=== PATIENT | male | born 1965 | race Caucasian/White ===

== ENCOUNTER 2019-03-30 10:12 | Inpatient (IN) | payer OTHER, MEDICAID, SELFPAY ==
[2019-03-30] VITALS (10 sets, daily range): BP systolic 120–164; BP diastolic 65–102; PULSE 84–172; RESP 15–29; TEMP 36.4–36.6; O2SAT 95–99; BMI 42.7
--- NOTE | 2019-03-30 10:17 | DI.RAD.S_ITS ---
PROCEDURE: XR CHEST 1V INDICATIONS: chest pain, palpitations TECHNIQUE: One view of the chest was acquired. COMPARISON: None. FINDINGS: Surgical changes and devices: None. Lungs and pleura: There is an area of increased attenuation identified at the right lung base. No focal consolidation or definite effusion or pneumothorax is appreciated. Mediastinum: Mediastinal contours appear normal. Heart size is borderline enlarged. Bones and chest wall: No suspicious bony lesions. Degenerative changes of the spine and shoulders are not adequately characterized. Overlying soft tissues appear unremarkable. IMPRESSION: 1. Cardiomegaly without overt heart failure. 2. Increased attenuation at the right lung base is nonspecific, but may represent atelectasis versus pneumonia. Dictated by: Slick Beatty M.D. on 03/30/2019 at 10:17 Approved by: Slick Beatty M.D. on 03/30/2019 at 10:20
[2019-03-30 10:42] LABS: Alanine Aminotransferase 29 IU/L (<50); Albumin 4.6 g/dL (3.5-5.0); Albumin Globulin Ratio 1.2 (1.0-2.8); Alkaline Phosphatase 66 U/L (38-126); Aspartate Aminotransferase 27 IU/L (17-59); Bilirubin Total 0.8 mg/dL (0.2-1.3); Blood Urea Nitrogen 16 mg/dL (9-20); Calcium 9.6 mg/dL (8.4-10.2); Carbon Dioxide 24 mmol/L (22-32); Chloride 107 mmol/L (98-107); Creatine Kinase 61 U/L (55-170); Estimated Glomerular Filt Rate > 60.0 mL/min (>60); Globulin 3.7 g/dL (1.7-4.1); Glucose 196 mg/dL (70-100); HEMOLYSIS < 15 (0-50); Lipase 78 U/L (23-300); Potassium 4.4 mmol/L (3.4-5.1); Sodium 143 mmol/L (137-145); Total Protein 8.3 g/dL (6.3-8.2)
--- NOTE | 2019-03-30 10:43 | ED.ARRPALP ---
HPI - Arrhythmia/Palpitations General Chief Complaint: Arrhythmia/Palpitations Stated Complaint: heart issues, heart is racing/shakey/clamy Time Seen by Provider: 03/30/19 10:16 Source: patient Mode of arrival: Ambulatory Limitations: no limitations History of Present Illness HPI narrative: 53-year-old male nonsmoker without significant medical problems presents with a chief complaint of a series of symptoms including palpitations which woke him up from sleep about 1 hour prior to arrival as well as some right-sided chest pain with radiation to his shoulder, shortness of breath and diaphoresis. He states he has had episodes of irregular heartbeat off and on for about the past year but has never had an EKG and has never been evaluated. He does not take anticoagulation nor does he carry a known diagnosis of rapid atrial fibrillation. MD complaint: rapid heart beat, heart racing, palpitations and irregular heart beat Onset (ago): hour(s) Duration: constant Severity: severe Context: occurred during rest Associated symptoms: chest pain, shortness of breath and diaphoresis Related Data Home Medications Medication Instructions Recorded Confirmed No Known Home Medications 03/30/19 03/30/19 Allergies Allergy/AdvReac Type Severity Reaction Status Date / Time No Known Drug Allergies Allergy Verified 03/30/19 10:26 Review of Systems Constitutional Constitutional: Denies chills, Denies fatigue, Denies fever(s), Denies frequent falls, Denies lethargy and Denies weakness Eyes Eyes: Denies change in vision, Denies eye discharge, Denies irritation and Denies loss of vision ENT Ears, Nose, Mouth, and Throat: Denies change in voice, Denies dizziness, Denies neck pain, Denies sore throat and Denies throat swelling Cardiovascular Cardiovascular: Reports chest pain, Reports diaphoresis, Reports irregular heart rhythm, Reports lightheadedness, Reports palpitations, Denies dyspnea, Denies dyspnea on exertion and Denies orthopnea Respiratory Respiratory: Denies cough, Denies dyspnea, Denies dyspnea on exertion and Denies wheezing Gastrointestinal Gastrointestinal: Denies abdominal pain, Denies change in bowel habits, Denies diarrhea, Denies nausea and Denies vomiting Genitourinary Genitourinary: Denies hematuria, Denies flank pain, Denies urinary incontinence and Denies urinary urgency Musculoskeletal Musculoskeletal: Denies back pain, Denies muscle weakness, Denies neck pain, Denies numbness and Denies tingling Integumentary/Breasts Skin/Breast: Denies pruritus, Denies erythema, Denies rash and Denies wounds Neurologic Neurologic: Denies behavioral changes, Denies confusion, Denies dizziness, Denies frequent falls, Denies loss of vision, Denies numbness, Denies tingling and Denies weakness Psychiatric Psychiatric: Denies anxiety, Denies behavioral changes, Denies confusion, Denies depression, Denies homicidal ideation and Denies suicidal ideation Endocrine Endocrine: Denies fatigue, Denies flushing and Reports palpitations Hematologic/Lymphatic Hematologic/Lymphatic: Denies easy bruising Allergic/Immunologic Allergic/Immunologic: Denies urticaria, Denies throat swelling and Denies wheezing Patient History Medical History (Updated 03/30/19 @ 13:14 by Annie Dumont RN) Diabetes (Acute) Social History household members: significant other Smoking Status: Never smoker alcohol intake: never Smoking Status: Unknown if ever smoked alcohol intake frequency: holidays/special occasions only Substance Use Type: does not use Exam Narrative Exam Narrative: GENERAL: [53] year old patient appears stated age. Well-nourished, well-developed patient, in mild distress. HEAD: Atraumatic. Normocephalic. EYES: Pupils equal round and reactive. Extraocular motions intact. No scleral icterus. No injection or drainage. ENT: Nose without bleeding, purulent drainage. Throat without erythema, tonsillar hypertrophy or exudate. Airway patent. NECK: Trachea midline. Non tender CARDIOVASCULAR: Rapid and irregular rhythm without murmurs, gallops, or rubs. RESPIRATORY: Clear to auscultation. Breath sounds equal bilaterally. No wheezes, rales, or rhonchi. GASTROINTESTINAL: Abdomen soft, non-tender, nondistended. EXTREMITIES: No edema or joint tenderness. BACK: Nontender without deformity or crepitance. No flank tenderness. NEURO: AOx3. SKIN: No rash or erythema of visible areas Initial Vital Signs Initial Vital Signs: Vital Signs Temperature 97.7 F 03/30/19 10:20 Pulse Rate 172 H 03/30/19 10:20 Respiratory Rate 29 H 03/30/19 10:20 Blood Pressure 157/102 H 03/30/19 10:20 Pulse Oximetry 99 03/30/19 10:20 Course Orders Ordered: ED Orders 03/30/19 10:17 XR chest 1V Stat EKG-12 Lead Stat 03/30/19 10:20 Complete Blood Count AUTO DIFF Stat Comprehensive Metabolic Panel Stat Lipase Stat Troponin & CK Cardiac Panel Stat Acetaminophen (Tylenol) 650 mg PO Q6HR PRN PRN Reason: Fever/Mild Pain (1-3) Last Admin: 03/30/19 16:37 Dose: 650 mg Documented by: TUAN Apixaban (Eliquis) 5 mg PO BID [facility] Last Admin: 03/30/19 15:03 Dose: 5 mg Documented by: MENDOZA Dextrose ([id number]) 25 gm IV PRN PRN PRN Reason: Hypoglycemia Gabapentin (Neurontin) 300 mg PO TID AISHWARYA DILTIAZEM (Diltiazem 125 Mg/125 [id number]) 125 mg in 125 mls @ 5 mls/hr IV TITRATE [facility]; Protocol Last Titration: 03/30/19 13:40 Dose: 15 mg/hr, 15 mls/hr Documented by: Titration: 03/30/19 13:00 Dose: 10 mg/hr, 10 mls/hr Documented by: Titration: 03/30/19 12:56 Dose: 5 mg/hr, 5 mls/hr Documented by: Admin: 03/30/19 12:00 Dose: 5 mg/hr, 5 mls/hr Documented by: CONNOR Insulin Aspart (Novolog Flexpen) 0 unit SUBCUT [facility]; Protocol Last Admin: 03/30/19 17:07 Dose: 2 unit Documented by: TUAN Cosigned by: ANDREA Naloxone HCl (Narcan) 0.2 mg IV Q2MIN PRN PRN Reason: Opiate Reversal Discontinued Medications Aspirin (Aspirin Chew) 324 mg PO NOW ONE Stop: 03/30/19 11:17 Last Admin: 03/30/19 11:59 Dose: 324 mg Documented by: CONNOR Diltiazem HCl (Cardizem) 10 mg IV NOW ONE Stop: 03/30/19 10:46 Last Admin: 03/30/19 10:54 Dose: 10 mg Documented by: DAVOTERoberta Sodium Chloride (Normal Saline 0.9%) 1,000 mls @ 150 mls/hr IV CONT [facility] Last Infusion: 03/30/19 14:25 Dose: 0 mls/hr Documented by: Infusion: 03/30/19 12:55 Dose: 150 mls/hr Documented by: Admin: 03/30/19 10:44 Dose: 150 mls/hr Documented by: JOSE Consultations Consultation #1: talk with Cardio at [facility]. Patient is not an appropriate candidate for electrocardioversion because although his symptoms started just a few hours ago the patient is in no extremis, there are no ischemic changes on the EKG and patient has had multiple episodes of palpitations and arrhythmia over the past few weeks raising the risk of the possibility development of intracardiac clot. Consultation #2: Hospitalist happy to accept this patient on his service Vital Signs Vital signs: Vital Signs - 8 hr 03/30/19 10:54 03/30/19 11:16 Pulse Rate 167 H 109 H Respiratory Rate 15 Blood Pressure 164/94 H Blood Pressure [Left Arm] 126/81 Pulse Oximetry 97 MDM - Arrhythmia/Palpitations Lab Data Result diagrams: 03/30/19 10:20 03/30/19 10:20 Labs: Lab Results 03/30/19 03/30/19 Range/Units 10:20 10:20 WBC 8.3 (4.5-11.0) X10^3/uL RBC 5.63 (4.5-5.9) X10^6/uL Hgb 16.5 (13.5-17.5) g/dL Hct 49.9 (41-53) % MCV 88.6 (80-100) fL MCH 29.3 (26-34) PG MCHC 33.1 (30-36) % RDW 15.1 H (11.6-14.8) % Plt Count 196 (150-400) X10^3/uL Neut % (Auto) 67.9 (50-75) % Lymph % (Auto) 21.0 L (25-40) % [place] % (Auto) 9.4 (3-14) % Eos % (Auto) 1.1 L (2-4) % Baso % (Auto) 0.6 (0-2) % Neut # (Auto) 5700 (0165-4758) /uL Lymph # (Auto) 1800 (6782-3896) /uL [place] # (Auto) 800 (0-900) /uL Eos # (Auto) 100 (0-450) /uL Baso # (Auto) 0 (0-100) /uL Sodium 143 (137-145) mmol/L Potassium 4.4 (3.4-5.1) mmol/L Chloride 107 (98-107) mmol/L Carbon Dioxide 24 (22-32) mmol/L BUN 16 (9-20) mg/dL Creatinine 1.00 (0.66-1.25) mg/dL Estimated GFR > 60.0 (>60) mL/min BUN/Creatinine Ratio 16.0 (6-22) Glucose 196 H (70-100) mg/dL Calcium 9.6 (8.4-10.2) mg/dL Total Bilirubin 0.8 (0.2-1.3) mg/dL AST 27 (17-59) IU/L ALT 29 (<50) IU/L Alkaline Phosphatase 66 (38-126) U/L Total Creatine Kinase 61 (55-170) U/L CK-MB (CK-2) TNP CK-MB (CK-2) Rel Index TNP Troponin I < 0.012 (0.01-0.034) ng/mL Total Protein 8.3 H (6.3-8.2) g/dL Albumin 4.6 (3.5-5.0) g/dL Globulin 3.7 (1.7-4.1) g/dL Albumin/Globulin Ratio 1.2 (1.0-2.8) Lipase 78 (23-300) U/L ECG Data Interpretation: Rapid atrial fibrillation at 173 without any signs of ischemia. Discharge Plan Departure Patient Disposition: Admitted As Inpatient Clinical Impression: Rapid atrial fibrillation Discharge Date/Time: 03/30/19 12:57 Admit Date/Time: 03/30/19 12:06 Admit Provider: Alexis Ceja
[2019-03-30] MEDS: SODIUM CHLORIDE 0.9% 1,000 ML 150 ML IV (10:44)
[2019-03-30 10:47] LABS: Add Manual Diff / Slide Review NO; Basophils Absolute Auto 0 /uL (0-100); Basophils Percent Auto 0.6 % (0-2); Eosinophils Absolute Auto 100 /uL (0-450); Eosinophils Percent Auto 1.1 % (2-4); Hematocrit 49.9 % (41-53); Hemoglobin 16.5 g/dL (13.5-17.5); Lymphocytes Absolute Auto 1800 /uL (1100-4500); Mean Corpuscular HGB Conc 33.1 % (30-36); Mean Corpuscular Hemoglobin 29.3 PG (26-34); Mean Corpuscular Volume 88.6 fL (80-100); Monocytes Absolute Auto 800 /uL (0-900); Monocytes Percent Auto 9.4 % (3-14); Neutrophils Absolute Auto 5700 /uL (1500-7000); Neutrophils Percent Auto 67.9 % (50-75); Platelet Count 196 X10^3/uL (150-400); Red Blood Cell Count 5.63 X10^6/uL (4.5-5.9); Red Cell Distribution Width 15.1 % (11.6-14.8); White Blood Cell Count 8.3 X10^3/uL (4.5-11.0)
[2019-03-30 10:52] LABS: Troponin I < 0.012 ng/mL (0.01-0.034)
[2019-03-30] MEDS: dilTIAZem 5 MG/ML SDV 10 MG IV (10:54)
[2019-03-30] MEDS: ASPIRIN 81 MG CHEW TAB 324 MG PO (11:59)
[2019-03-30] MEDS: DILTIAZEM 125 MG/125 ML PIGGYBACK IV (12:00)
--- NOTE | 2019-03-30 13:16 | PC.ADMIT ---
Admit Note Patient to room 228 at 1300 from ER. Walked self from stretcher to bed without issue. Alert and oriented x3. HR in the 130s, afib. Diltiazem gtt increased to 10 mg/hr. SpO2 98% on RA. Reports chest pain / and that this has improved from arrival to ER. Denies SOB. Declines to lock up any valuables. All clothing at bedside, glasses at bedside. Oriented to room and to bed/tv/call light controls. Call light within reach. [phone] Admission Note: The patient,Raudel Martinez,53 y/o, was given written information regarding hospital policies, unit procedures and contact persons. Patient's smoking status: Unknown if ever smoked. Vital Signs - 8 hr 03/30/19 10:20 03/30/19 10:54 03/30/19 11:16 Temperature 97.7 F Pulse Rate 167 H 109 H Pulse Rate [Radial] 172 H Respiratory Rate 29 H 15 Blood Pressure 164/94 H Blood Pressure [Left Arm] 157/102 H 126/81 Pulse Oximetry 99 97 03/30/19 12:12 Temperature Pulse Rate 131 H Pulse Rate [Radial] Respiratory Rate 16 Blood Pressure Blood Pressure [Left Arm] 146/72 H Pulse Oximetry 97
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
--- NOTE | 2019-03-30 14:25 | DI.ECHO.S_ITS ---
[facility] +---------+ : : [address] : : : : [id number] : : : : Phone: [phone]+ Echocardiogram Report + + :Name: BARRERA WEEKS Study Date: 03/31/2019 Height: 74 in : :[facility] Weight: 341 lb : : Gender: Male BSA: 2.7 m2 : :: 1965 Age: 53 yrs BP: 114/83 mmHg: :Reason For Study: AFIB RVR : : Performed By: Marlon Dos Santos : :Referring: ESTHER DAMICO : + + Interpretation Summary Afib with rapid ventricular response. Heart rate is 88-109 bpm. Normal LV size and wall thickness. Severe global hypokinesis. EF is 25-30%. Mild biatrial enlargement. Mildly dilated RV with mildly to moderately reduced RV function. There are no significant valvular abnormalities. Estimated PA systolic pressure is 40 mm Hg assuming RA pressure of 15 mm Hg. No prior study available for comparison. Procedure: A two-dimensional transthoracic echocardiogram with color flow and Doppler was performed. The study quality was technically difficult. There is no prior echocardiogram noted for this patient. A contrast injection of Definity was performed to improve assessment of LV function. The patient was in atrial fibrillation with controlled ventricular rate during the exam. The patient had a heart rate of 88-109 beats per minute. Left Ventricle: There is normal left ventricular wall thickness. Left ventricular size is at the upper limits of normal. There is no thrombus. The ejection fraction is estimated to be 25-30%. There is severe global hypokinesis of the left ventricle. Right Ventricle: The right ventricle is mildly dilated. Right ventricular systolic function is mild to moderately reduced. Atria: Both atria are mildly dilated. The interatrial septum is intact with no evidence for an atrial septal defect. Mitral Valve: The mitral valve is normal in structure and function. There is mild mitral regurgitation. Aortic Valve: The aortic valve is trileaflet. The aortic valve opens well. No aortic regurgitation is present. Tricuspid Valve: The tricuspid valve is normal in structure and function. There is trace tricuspid regurgitation. The right ventricular systolic pressure is estimated to be at least 40 mmHg based on an estimated right atrial pressure of 15 mm Hg. Pulmonic Valve: The pulmonic valve is normal in structure and function. There is trace pulmonic regurgitation. Great Vessels: The aortic root is normal size. The dimensions of the ascending aorta are normal. The pulmonary artery is normal size. The IVC is dilated (diameter is greater than 2.1 cm) and it collapses less than 50% with a sniff. This suggests a high right atrial pressure of 15 mm Hg. Pericardium/ Pleura There is no pericardial effusion. There is no pleural effusion. MMode/2D Measurements & Calculations LVIDd: 5.7 cm LVOT diam: 2.5 cm LVIDs: 4.9 cm Ao root diam: 3.1 cm FS: 14.6 % Aortic Jxn: 2.6 cm EPSS: 0.93 cm asc Aorta Diam: 3.0 cm IVSd: 0.90 cm LVPWd: 0.88 cm LV montemayor. diameter/BSA (cm/m^2): 2.1 LV sys. diameter/BSA (cm/m^2): 1.8 LA dimension: 5.0 cm RA long axis: 5.1 cm LA A2 area: 25.0 cm2 RA area: 24.3 cm2 LA A4 area: 27.8 cm2 RA vol: 98.1 ml LA length (vol): 6.0 cm RA : 36.0 ml/m2 LA vol: 97.8 ml IVC diam: 3.2 cm LA vol index: 35.9 ml/m2 RVD1 (basal): 4.6 cm RVD2 (mid): 4.7 cm Doppler Measurements & Calculations Ao V2 max: 114.4 cm/sec LVOT Max Yoandy: 69.8 cm/sec Ao V2 mean: 90.3 cm/sec LV V1 max P.0 mmHg Ao max P.3 mmHg LV V1 VTI: 12.4 cm Ao mean P.5 mmHg DIAMOND(I,D): 3.2 cm2 Ao V2 VTI: 18.3 cm DIAMOND(V,D): 2.9 cm2 sev ratio: 0.68 DIAMOND indexed to BSA (cm^2/m^2): 1.2 MV E max yoandy: 111.1 cm/sec TR max yoandy: 247.5 cm/sec MV A max yoandy: 1.3 cm/sec TR max P.6 mmHg MV E/A: 84.3 PA V2 max: 64.9 cm/sec Med Peak E' Yoandy: 4.9 cm/sec PA V2 mean: 53.8 cm/sec E/E' med: 22.8 PA mean P.2 mmHg Lat Peak E' Yoandy: 9.9 cm/sec PA pr(Accel): 54.1 mmHg E/E' lat: 11.3 PA Accel Time: 0.05 sec E/e' average: 17.0 MV dec time: 0.10 sec SV(LVOT): 59.0 ml Electronically signed by: Felecia Munoz M.D. on [facility] Physician:03/31/2019 06:57 PM
[2019-03-30] MEDS: APIXABAN 5 MG TABLET PO ×2 (15:03→21:00)
[2019-03-30] MEDS: ACETAMINOPHEN 325 MG TABLET 650 MG PO ×2 (16:37→22:14)
[2019-03-30] MEDS: INSULIN ASPART 100 UNIT/ML INSULN PEN SUBCUT (17:07)
[2019-03-30 19:02] LABS: Troponin I < 0.012 ng/mL (0.01-0.034)
[2019-03-30] MEDS: GABAPENTIN 300 MG CAPSULE PO (21:00)
[2019-03-30] MEDS: DILTIAZEM 125 MG/125 ML PIGGYBACK 15 MG IV (21:02)
--- NOTE | 2019-03-30 21:31 | PC.NURSE ---
2100 - Pt resting in bed. HR in the 80's. Cardizem gtt at 15mg/hr. Pt continues to report headache unrelieved by APAP. Hospitalist aware. Awaiting orders. Educated to medications, Gabapentin, Elquis and Cardizem. Pt denies further need. Call light in reach.
[2019-03-30] MEDS: METOPROLOL ER 25 MG TABLET PO (22:13)
[2019-03-31] VITALS (11 sets, daily range): BP systolic 102–138; BP diastolic 62–83; PULSE 71–112; RESP 16–25; TEMP 35.8–37.1; O2SAT 94–97
--- NOTE | 2019-03-31 01:02 | PC.NURSE ---
Addendum entered by Rhonda Benavidez R.N. 03/31/19 06:36: HR 70-90's. Diltazem GTT off at 0630 after discussion with SOHAN Lau. No acute overnight events. Original Note: 0000 Diltiazem GTT titrated down to 10 mg/hour per protocol. Metoprolol PO given on evening shift. BP stable. HR noted to be consistently in the 70's-80's. Remains in Afib.
[2019-03-31 05:31] LABS: Add Manual Diff / Slide Review NO; Basophils Absolute Auto 0 /uL (0-100); Basophils Percent Auto 0.4 % (0-2); Eosinophils Absolute Auto 200 /uL (0-450); Eosinophils Percent Auto 2.1 % (2-4); Hematocrit 43.5 % (41-53); Hemoglobin 14.4 g/dL (13.5-17.5); Lymphocytes Absolute Auto 2300 /uL (1100-4500); Lymphocytes Percent Auto 26.4 % (25-40); Mean Corpuscular HGB Conc 33.1 % (30-36); Mean Corpuscular Hemoglobin 29.3 PG (26-34); Mean Corpuscular Volume 88.5 fL (80-100); Monocytes Absolute Auto 900 /uL (0-900); Monocytes Percent Auto 10.4 % (3-14); Neutrophils Absolute Auto 5300 /uL (1500-7000); Neutrophils Percent Auto 60.7 % (50-75); Platelet Count 172 X10^3/uL (150-400); Red Blood Cell Count 4.91 X10^6/uL (4.5-5.9); Red Cell Distribution Width 15.4 % (11.6-14.8); White Blood Cell Count 8.7 X10^3/uL (4.5-11.0)
[2019-03-31 05:37] LABS: Blood Urea Nitrogen 16 mg/dL (9-20); Calcium 9.2 mg/dL (8.4-10.2); Carbon Dioxide 25 mmol/L (22-32); Chloride 107 mmol/L (98-107); Cholesterol 146 mg/dL (140-199); Estimated Glomerular Filt Rate > 60.0 mL/min (>60); Glucose 161 mg/dL (70-100); HDL Cholesterol 22 mg/dL (40-60); HEMOLYSIS < 15 (0-50); LDL Cholesterol Calculated 95 mg/dL (<100); Potassium 4.2 mmol/L (3.4-5.1); Sodium 141 mmol/L (137-145); Triglycerides 147 mg/dL (35-150)
[2019-03-31 05:42] LABS: Hemoglobin A1C% w Est Avg Glu 8.1 % (4.0-6.0)
[2019-03-31] MEDS: INSULIN ASPART 100 UNIT/ML INSULN PEN SUBCUT ×2 (10:03→12:52)
[2019-03-31] MEDS: APIXABAN 5 MG TABLET PO ×2 (10:04→20:40)
[2019-03-31] MEDS: GABAPENTIN 300 MG CAPSULE PO ×3 (10:04→20:40)
[2019-03-31] MEDS: METOPROLOL ER 25 MG TABLET PO (10:04)
--- NOTE | 2019-03-31 11:01 | PC.NURSE ---
Addendum entered by Louisa Islas R.N. 03/31/19 13:11: echo completed Original Note: dilt gtt off since 0600 pt remains afib cvr- po metoprolol and eliquis given as well as gabapentin- covered bld glucose with ssc- echo complete - pt reports queezy no nausea and vomiting noted- no rx ordered
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
[2019-03-31] MEDS: ONDANSETRON 4 MG/2 ML INJ IV (16:46)
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
[2019-03-31] MEDS: METOPROLOL ER 25 MG TABLET 50 MG PO (20:40)
[2019-03-31] MEDS: FUROSEMIDE 20 MG/2 ML VIAL IV (20:40)
[2019-03-31] MEDS: PANTOPRAZOLE 20 MG TABLET PO (20:47)
[2019-03-31] MEDS: ATORVASTATIN 20 MG TABLET PO (21:25)
--- NOTE | 2019-03-31 22:39 | PC.NURSE ---
Patient is A/Ox4, ambulatory in the room to bathroom, room air, tele shows Afib ranging from low 90's to 110's. No complaints of pain. Complained of feeling queasy, relieved by Zofran. Refused dinner but ate soup and turkey sandwich later on. No more complaints of nausea. Patient in bed, call light within reach.
[2019-04-01 00:37] VITALS: BP 135/77; PULSE 93; RESP 18; TEMP 37.1; O2SAT 97
[2019-04-01 05:17] VITALS: BP 121/76; PULSE 92; RESP 12; TEMP 36.3; O2SAT 93
[2019-04-01 05:24] LABS: Add Manual Diff / Slide Review NO; Basophils Absolute Auto 100 /uL (0-100); Basophils Percent Auto 0.6 % (0-2); Eosinophils Absolute Auto 200 /uL (0-450); Eosinophils Percent Auto 2.5 % (2-4); Hematocrit 43.9 % (41-53); Hemoglobin 14.6 g/dL (13.5-17.5); Lymphocytes Absolute Auto 2600 /uL (1100-4500); Lymphocytes Percent Auto 26.5 % (25-40); Mean Corpuscular HGB Conc 33.3 % (30-36); Mean Corpuscular Hemoglobin 29.4 PG (26-34); Mean Corpuscular Volume 88.4 fL (80-100); Monocytes Absolute Auto 900 /uL (0-900); Monocytes Percent Auto 9.5 % (3-14); Neutrophils Absolute Auto 6000 /uL (1500-7000); Neutrophils Percent Auto 60.9 % (50-75); Platelet Count 166 X10^3/uL (150-400); Red Blood Cell Count 4.97 X10^6/uL (4.5-5.9); Red Cell Distribution Width 14.6 % (11.6-14.8); White Blood Cell Count 9.8 X10^3/uL (4.5-11.0)
[2019-04-01 05:39] LABS: BUN Creatinine Ratio 14.5 (6-22); Blood Urea Nitrogen 16 mg/dL (9-20); Calcium 9.2 mg/dL (8.4-10.2); Carbon Dioxide 29 mmol/L (22-32); Chloride 105 mmol/L (98-107); Estimated Glomerular Filt Rate > 60.0 mL/min (>60); Glucose 149 mg/dL (70-100); HEMOLYSIS < 15 (0-50); Potassium 4.1 mmol/L (3.4-5.1); Sodium 141 mmol/L (137-145)
[2019-04-01 08:00] VITALS: BP 135/84; PULSE 105; RESP 14; TEMP 36.1; O2SAT 97
[2019-04-01] MEDS: PANTOPRAZOLE 20 MG TABLET PO (09:18)
[2019-04-01] MEDS: INSULIN ASPART 100 UNIT/ML INSULN PEN SUBCUT ×2 (09:19→12:19)
[2019-04-01] MEDS: METOPROLOL ER 25 MG TABLET 100 MG PO (09:19)
[2019-04-01] MEDS: GABAPENTIN 300 MG CAPSULE PO (09:19)
[2019-04-01] MEDS: APIXABAN 5 MG TABLET PO (09:19)
--- NOTE | 2019-04-01 10:54 | CM.DANOTE ---
Discharge Planning/Care Management DCP: assessment: case received and discussed in Team Rounds. Pt is a 53 year old male who admitted afternoon of 03/30 to care of hospitalist team. Payer: [facility]/Medicaid PCP: [facility] in [place]. Dr. Ceja confirms this morning that cardiology has been consulted and pt will transfer to [facility] for higher level of cardiac care including a cardiac cath. CM Discharge Assessment Start: 04/01/19 10:51 Freq: Status: Active Protocol: Document 04/01/19 10:51 ITV (Rec: 04/01/19 10:53 ITV [id number]) Discharge Planning Assessment Advance Directives? No Advance Directives on File No History Provided By Medical Record Comment has been staying at the home of friend Layne Jackson. Independent with ADL's Yes Is patient alert and oriented? Yes Discharge Plan Transfer to Higher Level of Care Review Status In Process
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
--- NOTE | 2019-04-01 12:02 | PC.NURSE ---
Addendum entered by Jeffrey Sarmiento R.N. 04/01/19 13:39: [facility] here to [facility] picker pt for transport to [facility]. Pt is AO x3 and in no acute distress. Pt did c/o mild dizziness that just started after lunch. His VSS. Bedside monitor shows Afib with rates in the 90s. BP stable. Report given to ALS RN. Pt able to transfer himself from bed to stretcher independently. Pt declines that I notify anyone (ie, family/friends) of his transfer. Pt left rm with ambulance staff at [id number]. Original Note: Report called to TAMIKO Cordova at [facility]. Pt is going to room 3004. Updated pt and coordinator.
[2019-04-01] MEDS: SILVER SULFADIAZINE 1% CREAM 25 GM 1 APPLIC TOP (12:22)
[2019-04-01 12:32] VITALS: BP 123/60; PULSE 100; RESP 19; TEMP 36.3; O2SAT 96
== END 2019-04-01 13:38 | disposition short-term general hospital (02) | DRG 201 ==
LOC: ED 12:04 → ICU 12:55
PROVIDERS: Admitting Provider Internal Medicine; Emergency Provider Emergency Medicine; Referring Provider Emergency Medicine; Visit Provider Internal Medicine
DX: I48.91 Unspecified atrial fibrillation (principal); I50.20 Unspecified systolic (congestive) heart failure; E11.42 Type 2 diabetes mellitus with diabetic polyneuropathy; Z68.41 Body mass index [BMI] 40.0-44.9, adult; Z79.84 Long term (current) use of oral hypoglycemic drugs; I10 Essential (primary) hypertension; G47.33 Obstructive sleep apnea (adult) (pediatric); T24.001D Burn of unspecified degree of unspecified site of right lower limb, except ankle and foot, subsequent encounter; E66.9 Obesity, unspecified
CPT/HCPCS: 36415; 71045; 80048; 80053; 80061; 82550; 82962; 83036; 83690; 83735; 84443; 84484; 85025; 87797; 93005; 93306; 96361; 96365; 96376; 99284; G0378; J1940; J2405; Q9957

== ENCOUNTER 2019-04-21 11:06 | Emergency (ER) | payer OTHER, MEDICAID, SELFPAY ==
[2019-03-30 13:25] VITALS: BMI 42.7
[2019-04-21 11:06] VITALS: BP 140/87; PULSE 121; RESP 30; TEMP 36.3; O2SAT 98
--- NOTE | 2019-04-21 11:12 | DI.RAD.S_ITS ---
PROCEDURE: XR CHEST 1V INDICATIONS: chest pain TECHNIQUE: One view of the chest was acquired. COMPARISON: [facility], CR, XR CHEST 1V, 03/30/2019, 10:38. FINDINGS: Surgical changes and devices: None. Lungs and pleura: Lungs are clear. No pleural effusions or pneumothorax. Mediastinum: Mediastinal contours appear normal. Heart size is enlarged. Bones and chest wall: No suspicious bony lesions. Overlying soft tissues appear unremarkable. IMPRESSION: No acute cardiopulmonary pathology. Dictated by: Roberto Contreras M.D. on 04/21/2019 at 11:36 Approved by: Roberto Contreras M.D. on 04/21/2019 at 11:40
[2019-04-21 12:08] LABS: INR 1.3 (0.9-1.3); Prothrombin Time 15.5 SECONDS (10.1-12.7)
[2019-04-21 12:10] LABS: PTT Partial Thromboplastin Tim 37 SECONDS (26.4-36.2)
[2019-04-21 12:12] LABS: Alanine Aminotransferase 28 IU/L (<50); Albumin 4.1 g/dL (3.5-5.0); Albumin Globulin Ratio 1.2 (1.0-2.8); Alkaline Phosphatase 45 U/L (38-126); Aspartate Aminotransferase 30 IU/L (17-59); BUN Creatinine Ratio 14.9 (6-22); Bilirubin Total 0.7 mg/dL (0.2-1.3); Blood Urea Nitrogen 13 mg/dL (9-20); Calcium 8.8 mg/dL (8.4-10.2); Carbon Dioxide 26 mmol/L (22-32); Chloride 108 mmol/L (98-107); Creatine Kinase 79 U/L (55-170); Estimated Glomerular Filt Rate > 60.0 mL/min (>60); Globulin 3.4 g/dL (1.7-4.1); Glucose 174 mg/dL (70-100); Lipase 238 U/L (23-300); Potassium 4.4 mmol/L (3.4-5.1); Sodium 140 mmol/L (137-145); Total Protein 7.5 g/dL (6.3-8.2)
[2019-04-21 12:13] LABS: HEMOLYSIS 53 (0-50); Magnesium 1.9 mg/dL (1.6-2.3)
[2019-04-21 12:21] LABS: NT-proBNP (BNP-Adult 18+) 3570 pg/mL (<125)
--- NOTE | 2019-04-21 12:21 | ED.ARRPALP ---
HPI - Arrhythmia/Palpitations <SOHAN Philip - Last Filed: 04/21/19 14:35> General Chief Complaint: Arrhythmia/Palpitations Stated Complaint: heart problems Time Seen by Provider: 04/21/19 12:03 Source: patient Mode of arrival: Ambulatory Limitations: no limitations History of Present Illness HPI narrative: This is a 53-year-old male, nonsmoker, who presents to ED with significant other with chief complain of his heart beating hard and funny intermittently for last 1 week. Patient was recently diagnosed with AFib in 03/30/19 and had started on Xarelto 20 mg q.p.m. and metoprolol or XL 100 mg b.i.d.. Echocardiogram was done after the admission and showed heart failure with reduced ejection fraction about 25% and discharged to home with Lasix 20 mg daily dose. Patient was to undergo left heart catheterization at [facility] but the patient reports this has canceled. Patient has of follow-up appointment with Dr. Mcnamara in 05/09/2019 and he also is currently taking lisinopril 5 mg daily. Patient has history of hypertension and MESFIN and had s/p uvula surgery but significant other states he still snores. Significant other states patient had coughing tickles last night at 3:00 a.m. and he seems like his symptoms chest palpitation/irregularity started with this. Spouse notice he has been having exertional short of breath for about a week. Patient denies chest pain, cold sweats, nausea or vomiting at this time. Patient denies orthopnea, recent edema to lower extremities. While patient is resting in bed at this time, he does not have any symptoms and current heart rate is decreased to 90s in AFib. Related Data Home Medications Medication Instructions Recorded Confirmed acetaminophen 650 mg PO Q4H PRN 04/21/19 04/21/19 atorvastatin 20 mg PO QPM 04/21/19 04/21/19 furosemide 20 mg PO QAM 04/21/19 04/21/19 lisinopril 5 mg PO QAM 04/21/19 04/21/19 metoprolol succinate 100 mg PO BID 04/21/19 04/21/19 rivaroxaban [Xarelto] 20 mg PO QPM 04/21/19 04/21/19 silver sulfadiazine [SSD] 1 applic TOPICAL DAILY 04/21/19 04/21/19 Previous Rx's Medication Instructions Recorded furosemide 40 mg PO BID #30 tab 04/21/19 Allergies Allergy/AdvReac Type Severity Reaction Status Date / Time No Known Drug Allergies Allergy Verified 03/30/19 10:26 Review of Systems <SOHAN Philip - Last Filed: 04/21/19 14:35> Review of Systems Narrative: General: Denies fever, chills, fatigue, malaise, sweats. HEENT: Denies sinus pain, ear pain, sore throat, difficulty swallowing, dizziness. Respiratory: See HPI Cardiovascular: Denies chest pain, palpitations, orthopnea, edema. Gastrointestinal: Denies nausea, vomiting, abdominal pain, diarrhea, constipation, melena. : Denies dysuria, frequency, incontinence, hematuria, urinary retention. Musculoskeletal: Denies weakness, joint pain or bony pain. Skin: Denies rash, skin lesions, or other. Neurologic: Denies weakness, headache, numbness, change in speech, confusion, seizures, incoordination. Psychiatric: No concerning psychosocial issues. 12-point review of systems is negative except for those stated above. Patient History <SOHAN Philip - Last Filed: 04/21/19 14:35> Medical History (Updated 04/21/19 @ 14:19 by SOHAN Philip) Diabetes (Acute) Hypertension (Acute) MESFIN (obstructive sleep apnea) (Acute) Surgical History (Updated 04/21/19 @ 12:29 by SOHAN Philip) H/O uvulectomy (Acute) Social History household members: significant other Smoking Status: Never smoker alcohol intake: never Smoking Status: Never smoker alcohol intake frequency: holidays/special occasions only Substance Use Type: does not use Exam <SOHAN Philip - Last Filed: 04/21/19 14:35> Narrative Exam Narrative: GEN: Alert, oriented x 3, obese, well appearing and nourished, and in no acute distress. Head: Normal cephalic, atraumatic. No scalp or temporal tenderness, palpable mass or rash. EYES: Pupils are equal, round, and reactive to light and accommodation. Extraocular muscles are intact bilaterally. There is no subconjunctival hemorrhage, exudate and sclera non-icteric. ENT: Bilateral auditory canals and tympanic membranes clear. Hearing grossly intact. Nose without bleeding, purulent discharge or deviation. Facial sinuses nontender to palpate. Mucous membrane moist, no mucosal lesion. Throat without erythema, tonsillar hypertrophy or exudate. s/p Uvulectomy, Airway patent. Neck: Trachea in midline. No JVD, non-tender without lymphadenopathy. No masses or thyroid megaly. Supple, non-tender and no meningeal signs. CARDIAC: Irregular rate and rhythm without murmurs, gallops, or rubs. No chest wall tenderness. Mild lower leg edema +1 without cyanosis or pallor. Capillary refill is less than 2 seconds. RESPIRATORY: Lungs are clear to auscultate bilaterally. No cough, wheezes, rales, or rhonchi. No stridor, respiratory distress, increase work of breathing, or accessary muscle used. ABD: Abdomen soft, nontender and non-distended and obese. No guarding or rebound tenderness to palpate. Bowel sounds are normal in all 4 quadrants. There is no palpable masses or organomegaly. EXT: Full painless ROM of all extremities with no loss of sensation, strength, effusion or edema. SKIN: Warm, dry, normal color for patient. No erythema, lesions or rash over visible areas. BACK: Nontender without deformity or crepitance. No flank tenderness. NEUROLOGICAL: Alert and oriented to place, time and person. Sensation and motor function intact bilaterally. No facial droops, dysphasia. PSYCHIATRIC: Good judgement and reason, without hallucinations, abnormal affect or abnormal behaviors during the examination. Patient is not suicidal. Initial Vital Signs Initial Vital Signs: Vital Signs Temperature 97.4 F L 04/21/19 11:06 Pulse Rate 121 H 04/21/19 11:06 Respiratory Rate 30 H 04/21/19 11:06 Blood Pressure 140/87 04/21/19 11:06 Pulse Oximetry 98 04/21/19 11:06 <Mau Potter MD - Last Filed: 04/23/19 08:30> Initial Vital Signs Initial Vital Signs: Vital Signs Temperature 97.4 F L 04/21/19 11:06 Pulse Rate 121 H 04/21/19 11:06 Respiratory Rate 30 H 04/21/19 11:06 Blood Pressure 140/87 04/21/19 11:06 Pulse Oximetry 98 04/21/19 11:06 Scores <SOHAN Philip - Last Filed: 04/21/19 14:35> HEART Score Heart Score history: Slightly Suspicious Heart Score EKG: Non-Specific repolarization disturbance Heart Score Age: 45-64 years old Heart Score risk factors: > 3 risk factors or hx of atherosclerotic disease Heart Score troponin: < or = to normal limit Heart Score Total: 4 Course <SOHAN Philip - Last Filed: 04/21/19 14:35> Course Course Narrative: consuted for elevated pro BNP of 3570 with hx of HF with EF of 25% Decision to Admit time: 13:06 Orders Ordered: Discontinued Medications Furosemide (Lasix) 40 mg IV NOW ONE Stop: 04/21/19 13:39 Last Admin: 04/21/19 14:48 Dose: 40 mg Documented by: TOMY Vital Signs Vital signs: Vital Signs - 8 hr 04/21/19 11:06 04/21/19 12:23 04/21/19 12:25 Temperature 97.4 F L 97.5 F L Pulse Rate 121 H 96 H 83 Respiratory Rate 30 H 19 12 Blood Pressure 140/87 Blood Pressure [Left Arm] 131/76 Blood Pressure [Right Arm] 131/76 Pulse Oximetry 98 96 96 <Mau Potter MD - Last Filed: 04/23/19 08:30> Orders Ordered: Discontinued Medications Furosemide (Lasix) 40 mg IV NOW ONE Stop: 04/21/19 13:39 Last Admin: 04/21/19 14:48 Dose: 40 mg Documented by: TOMY Vital Signs Vital signs: Vital Signs - 8 hr 04/21/19 11:06 04/21/19 12:23 04/21/19 12:25 Temperature 97.4 F L 97.5 F L Pulse Rate 121 H 96 H 83 Respiratory Rate 30 H 19 12 Blood Pressure 140/87 Blood Pressure [Left Arm] 131/76 Blood Pressure [Right Arm] 131/76 Pulse Oximetry 98 96 96 MDM - Arrhythmia/Palpitations <SOHAN Philip - Last Filed: 04/21/19 14:35> Differential Diagnosis Differential diagnosis: Likely artial fibrillation and other (HF exacerbation, NSTEMI) Medical Records Attestation: I reviewed the patient's medical records. Lab Data Attestation: I reviewed the patient's lab results. Result diagrams: 04/21/19 11:46 04/21/19 11:46 Labs: Lab Results 04/21/19 04/21/19 04/21/19 Range/Units 11:46 11:46 11:46 WBC 7.9 (4.5-11.0) X10^3/uL RBC 4.99 (4.5-5.9) X10^6/uL Hgb 14.8 (13.5-17.5) g/dL Hct 44.3 (41-53) % MCV 88.7 (80-100) fL MCH 29.7 (26-34) PG MCHC 33.5 (30-36) % RDW 15.0 H (11.6-14.8) % Plt Count 141 L (150-400) X10^3/uL Neut % (Auto) 70.5 (50-75) % Lymph % (Auto) 19.4 L (25-40) % [place] % (Auto) 7.3 (3-14) % Eos % (Auto) 2.1 (2-4) % Baso % (Auto) 0.7 (0-2) % Neut # (Auto) 5600 (5048-1562) /uL Lymph # (Auto) 1500 (9110-1552) /uL [place] # (Auto) 600 (0-900) /uL Eos # (Auto) 200 (0-450) /uL Baso # (Auto) 100 (0-100) /uL PT 15.5 H (10.1-12.7) SECONDS INR 1.3 (0.9-1.3) APTT 37 H (26.4-36.2) SECONDS Sodium 140 (137-145) mmol/L Potassium 4.4 (3.4-5.1) mmol/L Chloride 108 H (98-107) mmol/L Carbon Dioxide 26 (22-32) mmol/L BUN 13 (9-20) mg/dL Creatinine 0.87 (0.66-1.25) mg/dL Estimated GFR > 60.0 (>60) mL/min BUN/Creatinine Ratio 14.9 (6-22) Glucose 174 H (70-100) mg/dL Calcium 8.8 (8.4-10.2) mg/dL Magnesium (1.6-2.3) mg/dL Total Bilirubin 0.7 (0.2-1.3) mg/dL AST 30 (17-59) IU/L ALT 28 (<50) IU/L Alkaline Phosphatase 45 (38-126) U/L Total Creatine Kinase 79 (55-170) U/L CK-MB (CK-2) TNP CK-MB (CK-2) Rel Index TNP Troponin I < 0.012 (0.01-0.034) ng/mL NT-Pro-B Natriuret Pep (<125) pg/mL Total Protein 7.5 (6.3-8.2) g/dL Albumin 4.1 (3.5-5.0) g/dL Globulin 3.4 (1.7-4.1) g/dL Albumin/Globulin Ratio 1.2 (1.0-2.8) Lipase 238 (23-300) U/L 04/21/19 Range/Units 11:46 WBC (4.5-11.0) X10^3/uL RBC (4.5-5.9) X10^6/uL Hgb (13.5-17.5) g/dL Hct (41-53) % MCV (80-100) fL MCH (26-34) PG MCHC (30-36) % RDW (11.6-14.8) % Plt Count (150-400) X10^3/uL Neut % (Auto) (50-75) % Lymph % (Auto) (25-40) % [place] % (Auto) (3-14) % Eos % (Auto) (2-4) % Baso % (Auto) (0-2) % Neut # (Auto) (2285-7077) /uL Lymph # (Auto) (5212-2463) /uL [place] # (Auto) (0-900) /uL Eos # (Auto) (0-450) /uL Baso # (Auto) (0-100) /uL PT (10.1-12.7) SECONDS INR (0.9-1.3) APTT (26.4-36.2) SECONDS Sodium (137-145) mmol/L Potassium (3.4-5.1) mmol/L Chloride (98-107) mmol/L Carbon Dioxide (22-32) mmol/L BUN (9-20) mg/dL Creatinine (0.66-1.25) mg/dL Estimated GFR (>60) mL/min BUN/Creatinine Ratio (6-22) Glucose (70-100) mg/dL Calcium (8.4-10.2) mg/dL Magnesium 1.9 (1.6-2.3) mg/dL Total Bilirubin (0.2-1.3) mg/dL AST (17-59) IU/L ALT (<50) IU/L Alkaline Phosphatase (38-126) U/L Total Creatine Kinase (55-170) U/L CK-MB (CK-2) CK-MB (CK-2) Rel Index Troponin I (0.01-0.034) ng/mL NT-Pro-B Natriuret Pep 3570 H (<125) pg/mL Total Protein (6.3-8.2) g/dL Albumin (3.5-5.0) g/dL Globulin (1.7-4.1) g/dL Albumin/Globulin Ratio (1.0-2.8) Lipase (23-300) U/L Imaging Data Chest x-ray: Radiologist's Impresson: [place] [id number] XRay Report Signed Patient: Raudel Martinez RMR#: [id number] : 1965Acct:[id number] Age/Sex: 53 / MDate of Service: 04/21/19 Loc: ED Accession Number: [id number] Procedure: XR chest 1V Ordering Provider: Mau Potter MD PROCEDURE: XR CHEST 1V INDICATIONS: chest pain TECHNIQUE: One view of the chest was acquired. COMPARISON: [facility], CR, XR CHEST 1V, 03/30/2019, 10:38. FINDINGS: Surgical changes and devices: None. Lungs and pleura: Lungs are clear. No pleural effusions or pneumothorax. Mediastinum: Mediastinal contours appear normal. Heart size is enlarged. Bones and chest wall: No suspicious bony lesions. Overlying soft tissues appear unremarkable. IMPRESSION: No acute cardiopulmonary pathology. Dictated by: Roberto Contreras M.D. on 04/21/2019 at 11:36 Approved by: Roberto Contreras M.D. on 04/21/2019 at 11:40 ECG Data Attestation: I personally reviewed and interpreted this ECG as follows: Prior ECG tracings: available for review Interpretation: Afib rate at 96 QRS dur 90, QT/QTC 358/452. Left [place] dominant No ST elevation or depression MDM Narrative Medical decision making narrative: This is a 53 year old male who recently was diagnosed with atrial fibrillation and heart failure in end of March and currently taking metoprolol or, lisinopril, Xarelto, furosemide 20 mg for these presents to ED with palpitation, exertional short of breath for 1 week. Patient states he has been compliant with his medications and is waiting to be followed up with Dr. Griffith after he was transferred to [facility] for possible left heart catheterization after he was initially admitted to [facility]. Patient states cardiac josue has not been done at this time. EKG showed a fever rate in 90s. Cardiac enzymes were negative. Pro BNP was elevated to 3570. Patient was not hypoxic and O2 sat was 96-97% in room air. Patient was ambulated to the bathroom and back to his room without increasing short of breath. Glucose was elevated to 174 and appears to be his not taking hyperglycemic medications at this time. Potassium was 4.4 today. Enlarged heart size without acute cardiopulmonary pathology. Dr. Ceja was consulted and he was evaluated at the bedside and appreciated the consult and recommendation. Patient was to increase furosemide 40 mg b.i.d. 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 Return precautions were discussed with the patient and patient verbalized the understanding and in agreement with the treatment plan. Patient advised to follow-up with PCP next week for possible recheck on his labs and follow-up evaluation. <Mau Potter MD - Last Filed: 04/23/19 08:30> Lab Data Labs: Lab Results 04/21/19 04/21/19 04/21/19 Range/Units 11:46 11:46 11:46 WBC 7.9 (4.5-11.0) X10^3/uL RBC 4.99 (4.5-5.9) X10^6/uL Hgb 14.8 (13.5-17.5) g/dL Hct 44.3 (41-53) % MCV 88.7 (80-100) fL MCH 29.7 (26-34) PG MCHC 33.5 (30-36) % RDW 15.0 H (11.6-14.8) % Plt Count 141 L (150-400) X10^3/uL Neut % (Auto) 70.5 (50-75) % Lymph % (Auto) 19.4 L (25-40) % [place] % (Auto) 7.3 (3-14) % Eos % (Auto) 2.1 (2-4) % Baso % (Auto) 0.7 (0-2) % Neut # (Auto) 5600 (0803-0663) /uL Lymph # (Auto) 1500 (6567-7776) /uL [place] # (Auto) 600 (0-900) /uL Eos # (Auto) 200 (0-450) /uL Baso # (Auto) 100 (0-100) /uL PT 15.5 H (10.1-12.7) SECONDS INR 1.3 (0.9-1.3) APTT 37 H (26.4-36.2) SECONDS Sodium 140 (137-145) mmol/L Potassium 4.4 (3.4-5.1) mmol/L Chloride 108 H (98-107) mmol/L Carbon Dioxide 26 (22-32) mmol/L BUN 13 (9-20) mg/dL Creatinine 0.87 (0.66-1.25) mg/dL Estimated GFR > 60.0 (>60) mL/min BUN/Creatinine Ratio 14.9 (6-22) Glucose 174 H (70-100) mg/dL Calcium 8.8 (8.4-10.2) mg/dL Magnesium (1.6-2.3) mg/dL Total Bilirubin 0.7 (0.2-1.3) mg/dL AST 30 (17-59) IU/L ALT 28 (<50) IU/L Alkaline Phosphatase 45 (38-126) U/L Total Creatine Kinase 79 (55-170) U/L CK-MB (CK-2) TNP CK-MB (CK-2) Rel Index TNP Troponin I < 0.012 (0.01-0.034) ng/mL NT-Pro-B Natriuret Pep (<125) pg/mL Total Protein 7.5 (6.3-8.2) g/dL Albumin 4.1 (3.5-5.0) g/dL Globulin 3.4 (1.7-4.1) g/dL Albumin/Globulin Ratio 1.2 (1.0-2.8) Lipase 238 (23-300) U/L 04/21/19 Range/Units 11:46 WBC (4.5-11.0) X10^3/uL RBC (4.5-5.9) X10^6/uL Hgb (13.5-17.5) g/dL Hct (41-53) % MCV (80-100) fL MCH (26-34) PG MCHC (30-36) % RDW (11.6-14.8) % Plt Count (150-400) X10^3/uL Neut % (Auto) (50-75) % Lymph % (Auto) (25-40) % [place] % (Auto) (3-14) % Eos % (Auto) (2-4) % Baso % (Auto) (0-2) % Neut # (Auto) (0576-4774) /uL Lymph # (Auto) (5967-1096) /uL [place] # (Auto) (0-900) /uL Eos # (Auto) (0-450) /uL Baso # (Auto) (0-100) /uL PT (10.1-12.7) SECONDS INR (0.9-1.3) APTT (26.4-36.2) SECONDS Sodium (137-145) mmol/L Potassium (3.4-5.1) mmol/L Chloride (98-107) mmol/L Carbon Dioxide (22-32) mmol/L BUN (9-20) mg/dL Creatinine (0.66-1.25) mg/dL Estimated GFR (>60) mL/min BUN/Creatinine Ratio (6-22) Glucose (70-100) mg/dL Calcium (8.4-10.2) mg/dL Magnesium 1.9 (1.6-2.3) mg/dL Total Bilirubin (0.2-1.3) mg/dL AST (17-59) IU/L ALT (<50) IU/L Alkaline Phosphatase (38-126) U/L Total Creatine Kinase (55-170) U/L CK-MB (CK-2) CK-MB (CK-2) Rel Index Troponin I (0.01-0.034) ng/mL NT-Pro-B Natriuret Pep 3570 H (<125) pg/mL Total Protein (6.3-8.2) g/dL Albumin (3.5-5.0) g/dL Globulin (1.7-4.1) g/dL Albumin/Globulin Ratio (1.0-2.8) Lipase (23-300) U/L Discharge Plan Departure Patient Disposition: Home Clinical Impression: CHF exacerbation Qualifiers: Heart failure type: unspecified Qualified Code(s): I50.9 - Heart failure, unspecified Atrial fibrillation Qualifiers: Atrial fibrillation type: unspecified Qualified Code(s): I48.91 - Unspecified atrial fibrillation Discharge Date/Time: 04/21/19 15:16 Instructions: DI for Atrial Fibrillation, High-Potassium Diet, DI for Heart Failure Exacerbations Activity Restrictions/Additional Instructions: You have been diagnosed with [atrial fibrillation and CHF exacerbation. Cardiac enzymes were negative today. Your heart rate has decreased to 80s to 90s but remaining in atrial fibrillation. It is likely that the short of breath with exertion is due to heart failure. Please increase furosemide to 40 mg twice a day as we discussed for next 1 week. You have received a dose of furosemide IV in ED. After a week, decrease furosemide to once a day. Please eat potassium rich food while your taking increased furosemide.]. What to do: *Take your medications as directed. Furosemide prescription has been transmitted to [facility] in [place]. *Follow up with your primary care provider in 2-3 days, call for an appointment. Let them know you were seen in the ED and that we asked you to be seen in follow up. You may need repeat blood tests. Please follow-up with your automatic beading lathe operator sooner if possible. *Return to ED if you have any new, worsening, or concerning symptoms, such as [chest pain, breathing difficulty, unable to tolerate fluids, generalize weakness, or any acute concerns]. Prescriptions: New furosemide 40 mg tablet 40 mg PO BID Qty: 30 RF: 0 No Action silver sulfadiazine [SSD] 1 % cream 1 applic TOPICAL DAILY RF: 0 acetaminophen 325 mg Tablet 650 mg PO Q4H PRN (Reason: Pain, Mild) RF: 0 atorvastatin 20 mg tablet 20 mg PO QPM RF: 0 metoprolol succinate 100 mg tablet extended release 24 hr 100 mg PO BID RF: 0 lisinopril 5 mg tablet 5 mg PO QAM RF: 0 furosemide 20 mg tablet 20 mg PO QAM RF: 0 Xarelto 20 mg tablet 20 mg PO QPM RF: 0 Referrals: Reynaldo Sumner MD [Non-Staff] - Eric Griffith MD [Physician] -
[2019-04-21 12:22] LABS: Add Manual Diff / Slide Review NO; Basophils Absolute Auto 100 /uL (0-100); Basophils Percent Auto 0.7 % (0-2); Eosinophils Absolute Auto 200 /uL (0-450); Eosinophils Percent Auto 2.1 % (2-4); Hematocrit 44.3 % (41-53); Hemoglobin 14.8 g/dL (13.5-17.5); Lymphocytes Absolute Auto 1500 /uL (1100-4500); Lymphocytes Percent Auto 19.4 % (25-40); Mean Corpuscular HGB Conc 33.5 % (30-36); Mean Corpuscular Hemoglobin 29.7 PG (26-34); Mean Corpuscular Volume 88.7 fL (80-100); Monocytes Absolute Auto 600 /uL (0-900); Monocytes Percent Auto 7.3 % (3-14); Neutrophils Absolute Auto 5600 /uL (1500-7000); Neutrophils Percent Auto 70.5 % (50-75); Platelet Count 141 X10^3/uL (150-400); Red Blood Cell Count 4.99 X10^6/uL (4.5-5.9); White Blood Cell Count 7.9 X10^3/uL (4.5-11.0)
[2019-04-21 12:23] VITALS: BP 131/76; PULSE 96; RESP 19; TEMP 36.4; O2SAT 96
[2019-04-21 12:24] LABS: Troponin I < 0.012 ng/mL (0.01-0.034)
[2019-04-21 12:25] VITALS: BP 131/76; PULSE 83; RESP 12; O2SAT 96
--- NOTE | 2019-04-21 13:40 | P.CONS_ITS ---
History of Present Illness Consult details Date Patient Seen: 04/21/19 Time Patient Seen: 13:41 Chief complaint: heart problems Reason for consult: dyspnea on exertion Requesting provider: Mukul Long Narrative: Raudel Martinez is a 53-year-old male with past medical history of diabetes, hypertension, MESFIN s/p uvular surgery, HFrEF, and atrial fibrillation who presented to the emergency room with worsening dyspnea on exertion. Patient was recently admitted on March 30, 2019 for AFib with RVR, during that ad mission he was noted to have an ejection fraction of 25%, he was transferred on hospital day 2 for possible left heart catheterization to [facility]. At [facility] they did a stress test which was negative, and left heart catheterization was not performed. Patient was discharged on appropriate medications including Lasix 20 mg daily. Patient states that over the past week he has had worsening lower extremity edema, and dyspnea on exertion. He is limited to walking about 20 ft before he gets short of breath. He denies any chest pain, nausea, vomiting, abdominal pain, orthopnea. He does endorse a chronic nonproductive cough. Patient and his both state that he became very sweaty and short of breath when attempting intercourse a few nights ago. He denies any fevers or chills, or recent sick contacts. Patient is state that they were unable to afford a scale, and do not know if he had been gaining any weight or not. In the emergency room, patient's vital signs were initially notable for tachycardia, and the patient was in AFib with RVR. This improved without any medications. He was not hypoxic on room air, and was able to ambulate although he was short of breath. Medicine was asked for consultation for his dyspnea on exertion. His lab studies are notable for a glucose of 174, proBNP of 3570, negative troponin. Chest x-ray was unremarkable. EKG showed AFib with a rate of 96, similar morphology to previous EKG which was in RVR, and no evidence of active ischemia. Meds Home Medications and Allergies Home Medications Medication Instructions Recorded Confirmed Type acetaminophen 650 mg PO Q4H PRN 04/21/19 04/21/19 History atorvastatin 20 mg PO QPM 04/21/19 04/21/19 History furosemide 20 mg PO QAM 04/21/19 04/21/19 History lisinopril 5 mg PO QAM 04/21/19 04/21/19 History metoprolol succinate 100 mg PO BID 04/21/19 04/21/19 History rivaroxaban [Xarelto] 20 mg PO QPM 04/21/19 04/21/19 History silver sulfadiazine [SSD] 1 applic TOPICAL DAILY 04/21/19 04/21/19 History Allergies Allergy/AdvReac Type Severity Reaction Status Date / Time No Known Drug Allergies Allergy Verified 03/30/19 10:26 Review of Systems Review of Systems Narrative: All other systems reviewed with the patient and are negative unless otherwise stated. Exam Vital Signs (past 8 hours): - 04/21/19 11:06 04/21/19 12:23 04/21/19 12:25 Temperature 97.4 F L 97.5 F L Pulse Rate 121 H 96 H 83 Respiratory Rate 30 H 19 12 Blood Pressure 140/87 Blood Pressure [Left Arm] 131/76 Blood Pressure [Right Arm] 131/76 Pulse Oximetry 98 96 96 Oxygen Delivery Method Room Air Narrative Exam Narrative: GENERAL APPEARANCE: Obese, Well developed, well nourished male in no acute distress. SKIN: Inspection of the skin reveals no rashes, ulcerations or petechiae. HEENT: The sclerae were anicteric and conjunctivae were pink and moist. Extraocular movements were intact and pupils were equal, round with normal accommodation. External inspection of the ears and nose showed no scars, lesions, or masses. Lips, teeth, and gums showed normal mucosa. The oral mucosa, hard and soft palate, tongue and posterior pharynx were unremarkable. NECK: Supple and symmetric. There was no thyroid enlargement, and no tenderness, or masses were felt. CHEST: Normal AP diameter and normal contour without any kyphoscoliosis. LUNGS: Auscultation of the lungs revealed no wheezes, rhonchi, or rales. CARDIOVASCULAR: Regular rate but irregularly irregular with no murmurs rubs or gallops. ABDOMEN: Soft and nontender with normal bowel sounds. No ascites was noted. MUSCULOSKELETAL: There was no tenderness or effusions noted. Muscle strength and tone were normal. EXTREMITIES: No cyanosis, clubbing. There is 1-2+ pitting edema of his lower extremities. NEUROLOGIC: Alert and oriented x 3. Normal affect. Gait was normal. Strength is +5/5 in the Upper Extremities and Lower Extremities Bilaterally. Bilateral diminished sensation to touch in his lower extremities Objective ECG Impression: AFib with a rate of 96, similar morphology to previous EKG which was in RVR, and no evidence of active ischemia. Imaging Chest x-ray: My impression: No acute cardiopulmonary process. Radiologist's impression: No acute cardiopulmonary pathology. Labs Result Diagrams: 04/21/19 11:46 04/21/19 11:46 Labs: Laboratory Results - last 24 hr 04/21/19 04/21/19 04/21/19 11:46 11:46 11:46 WBC 7.9 RBC 4.99 Hgb 14.8 Hct 44.3 MCV 88.7 MCH 29.7 MCHC 33.5 RDW 15.0 H Plt Count 141 L Neut % (Auto) 70.5 Lymph % (Auto) 19.4 L [place] % (Auto) 7.3 Eos % (Auto) 2.1 Baso % (Auto) 0.7 Neut # (Auto) 5600 Lymph # (Auto) 1500 [place] # (Auto) 600 Eos # (Auto) 200 Baso # (Auto) 100 PT 15.5 H INR 1.3 APTT 37 H Sodium 140 Potassium 4.4 Chloride 108 H Carbon Dioxide 26 BUN 13 Creatinine 0.87 Estimated GFR > 60.0 BUN/Creatinine Ratio 14.9 Glucose 174 H Calcium 8.8 Magnesium Total Bilirubin 0.7 AST 30 ALT 28 Alkaline Phosphatase 45 Total Creatine Kinase 79 CK-MB (CK-2) TNP CK-MB (CK-2) Rel Index TNP Troponin I < 0.012 NT-Pro-B Natriuret Pep Total Protein 7.5 Albumin 4.1 Globulin 3.4 Albumin/Globulin Ratio 1.2 Lipase 238 04/21/19 11:46 WBC RBC Hgb Hct MCV MCH MCHC RDW Plt Count Neut % (Auto) Lymph % (Auto) [place] % (Auto) Eos % (Auto) Baso % (Auto) Neut # (Auto) Lymph # (Auto) [place] # (Auto) Eos # (Auto) Baso # (Auto) PT INR APTT Sodium Potassium Chloride Carbon Dioxide BUN Creatinine Estimated GFR BUN/Creatinine Ratio Glucose Calcium Magnesium 1.9 Total Bilirubin AST ALT Alkaline Phosphatase Total Creatine Kinase CK-MB (CK-2) CK-MB (CK-2) Rel Index Troponin I NT-Pro-B Natriuret Pep 3570 H Total Protein Albumin Globulin Albumin/Globulin Ratio Lipase Assessment & Plan Assessment & Plan narrative: Raudel Martinez is a 53-year-old male with past medical history of diabetes, hypertension, MESFIN s/p uvular surgery, HFrEF, and atrial fibrillation who presented to the emergency room with worsening dyspnea on exertion. 1. Dyspnea on exertion -given elevated proBNP of 3570, as well as lower extremity edema and dyspnea on exertion symptoms are likely due to volume overload from his heart failure. He was discharged on 20 mg of p.o. Lasix daily. He likely needs an increased dose of Lasix. Given his volume overload currently a recommend 80 mg b.i.d. for 1 week, followed by new daily dose of 40 mg of Lasix daily. He will likely benefit from a single dose of IV Lasix here to hopefully help with his dyspnea on exertion. Stressed return precautions including increasing weight gain (did recommend he get a scale), Chest pain, shortness of breath at rest, or continue dyspnea on exertion that is not improving by Wednesday. -patient has scheduled follow-up with cardiology at the end of the month 2. AFib with RVR, RVR resolved -patient did present with a rapid heart rate, 121 on arrival to the ER. This improved without interventions. This is likely worsened in the setting of volume overload. He should continue Lasix as noted above. He should continue his usual dose of 100 mg of metoprolol twice daily. At this time patient can be discharged home wit follow-up plan as noted above from medicine perspective. Please do not hesitate to contact the hospitalist construction manager with any additional questions.
[2019-04-21] MEDS: FUROSEMIDE 40 MG/4 ML VIAL IV (14:48)
[2019-04-21 14:56] VITALS: BP 156/78; PULSE 78; O2SAT 99
[2019-04-21 14:57] VITALS: BP 156/78; PULSE 74; RESP 18; O2SAT 98
== END 2019-04-21 15:16 | disposition home or self-care (01) ==
PROVIDERS: Emergency Medicine; Emergency Provider Nurse Practitioner Family
DX: I48.91 Unspecified atrial fibrillation (principal); I50.9 Heart failure, unspecified
CPT/HCPCS: 36415; 71045; 80053; 82550; 83690; 83735; 83880; 84484; 85025; 85610; 85730; 93005; 96374; 99284; J1940

== ENCOUNTER 2019-05-07 02:06 | Observation (INO) | payer OTHER, MEDICAID, SELFPAY ==
[2019-03-30 13:25] VITALS: BMI 42.7
[2019-05-07] VITALS (11 sets, daily range): BP systolic 116–152; BP diastolic 56–89; PULSE 78–141; RESP 18–24; TEMP 36.3–36.7; O2SAT 95–99; BMI 28.8; BMI 42.7
[2019-05-07] MEDS: SODIUM CHLORIDE 0.9% 1,000 ML 150 ML IV (02:23)
[2019-05-07] MEDS: propofoL 200 MG/20 ML VIAL IV (02:25)
[2019-05-07 02:28] LABS: Add Manual Diff / Slide Review NO; Basophils Absolute Auto 0 /uL (0-100); Basophils Percent Auto 0.5 % (0-2); Eosinophils Absolute Auto 200 /uL (0-450); Eosinophils Percent Auto 1.8 % (2-4); Hematocrit 44.1 % (41-53); Hemoglobin 14.5 g/dL (13.5-17.5); Lymphocytes Absolute Auto 2300 /uL (1100-4500); Lymphocytes Percent Auto 24.7 % (25-40); Mean Corpuscular Hemoglobin 29.4 PG (26-34); Monocytes Absolute Auto 800 /uL (0-900); Monocytes Percent Auto 8.7 % (3-14); Neutrophils Absolute Auto 6000 /uL (1500-7000); Neutrophils Percent Auto 64.3 % (50-75); Platelet Count 163 X10^3/uL (150-400); Red Blood Cell Count 4.95 X10^6/uL (4.5-5.9); Red Cell Distribution Width 14.4 % (11.6-14.8); White Blood Cell Count 9.4 X10^3/uL (4.5-11.0)
--- NOTE | 2019-05-07 02:35 | ED.ARRPALP ---
HPI - Arrhythmia/Palpitations General Chief Complaint: Arrhythmia/Palpitations Stated Complaint: fast heartrate/headache/sob/chest pressure/?afib Time Seen by Provider: 05/07/19 02:09 Source: patient Mode of arrival: Wheelchair Limitations: no limitations History of Present Illness HPI narrative: 53-year-old male nonsmoker with history of hypertension, hyperlipidemia and atrial fibrillation on Xarelto presents with a few hours of rapid heart rate, chest pain, shortness of breath and headache. He went to bed feeling fine and has normal state of health and awoke with a recurrence of his AFib. He was cardioverted at [facility] last week. He has been on Xarelto for over a month and denies missing any doses. He denies any fever or chills. He has had no runny nose, sore throat or cough. He denies exposure to persons with known or suspected COVID-19 MD complaint: rapid heart beat, heart racing, palpitations, irregular heart beat and atrial fibrillation Onset (ago): hour(s) Duration: constant Severity: similar to previous episodes Context: occurred during rest Arrhythmia history: atrial fibrillation Associated symptoms: chest pain and shortness of breath Related Data Home Medications Medication Instructions Recorded Confirmed acetaminophen 650 mg PO Q4H PRN 04/21/19 04/21/19 atorvastatin 20 mg PO QPM 04/21/19 04/21/19 furosemide 20 mg PO QAM 04/21/19 04/21/19 lisinopril 5 mg PO QAM 04/21/19 04/21/19 metoprolol succinate 100 mg PO BID 04/21/19 04/21/19 rivaroxaban [Xarelto] 20 mg PO QPM 04/21/19 04/21/19 silver sulfadiazine [SSD] 1 applic TOPICAL DAILY 04/21/19 04/21/19 metformin 500 mg PO BID 05/07/19 05/07/19 Allergies Allergy/AdvReac Type Severity Reaction Status Date / Time No Known Drug Allergies Allergy Verified 03/30/19 10:26 Review of Systems Constitutional Constitutional: Denies chills, Denies fatigue, Denies fever(s), Denies frequent falls, Reports headache(s), Denies lethargy and Denies weakness Eyes Eyes: Denies change in vision, Denies eye discharge, Denies irritation and Denies loss of vision ENT Ears, Nose, Mouth, and Throat: Denies change in voice, Denies dizziness, Reports headache(s), Denies neck pain, Denies sore throat and Denies throat swelling Cardiovascular Cardiovascular: Reports chest pain, Reports irregular heart rhythm, Denies lightheadedness, Reports palpitations, Denies dyspnea, Denies dyspnea on exertion and Denies orthopnea Respiratory Respiratory: Denies cough, Denies dyspnea, Denies dyspnea on exertion and Denies wheezing Gastrointestinal Gastrointestinal: Denies abdominal pain, Denies change in bowel habits, Denies diarrhea, Denies nausea and Denies vomiting Genitourinary Genitourinary: Denies hematuria, Denies flank pain, Denies urinary incontinence and Denies urinary urgency Musculoskeletal Musculoskeletal: Denies back pain, Denies muscle weakness, Denies neck pain, Denies numbness and Denies tingling Integumentary/Breasts Skin/Breast: Denies pruritus, Denies erythema, Denies rash and Denies wounds Neurologic Neurologic: Denies behavioral changes, Denies confusion, Denies dizziness, Denies frequent falls, Reports headache(s), Denies loss of vision, Denies numbness, Denies tingling and Denies weakness Psychiatric Psychiatric: Denies anxiety, Denies behavioral changes, Denies confusion, Denies depression, Denies homicidal ideation and Denies suicidal ideation Endocrine Endocrine: Denies fatigue, Denies flushing and Reports palpitations Hematologic/Lymphatic Hematologic/Lymphatic: Denies easy bruising Allergic/Immunologic Allergic/Immunologic: Denies urticaria, Denies throat swelling and Denies wheezing Patient History Medical History Diabetes (Acute) Hypertension (Acute) MESFIN (obstructive sleep apnea) (Acute) Surgical History H/O uvulectomy (Acute) Social History household members: significant other Smoking Status: Never smoker alcohol intake: never Smoking Status: Never smoker alcohol intake frequency: holidays/special occasions only Substance Use Type: does not use Exam Narrative Exam Narrative: GENERAL: [53] year old patient appears stated age. Well-nourished, well-developed patient, in mild distress. Anxious HEAD: Atraumatic. Normocephalic. EYES: Pupils equal round and reactive. Extraocular motions intact. No scleral icterus. No injection or drainage. ENT: Nose without bleeding, purulent drainage. Throat without erythema, tonsillar hypertrophy or exudate. Airway patent. NECK: Trachea midline. Non tender CARDIOVASCULAR: Tachycardic and irregular rhythm without murmurs, gallops, or rubs. RESPIRATORY: Clear to auscultation. Breath sounds equal bilaterally. No wheezes, rales, or rhonchi. GASTROINTESTINAL: Abdomen soft, non-tender, nondistended. EXTREMITIES: No edema or joint tenderness. BACK: Nontender without deformity or crepitance. No flank tenderness. NEURO: AOx3. SKIN: No rash or erythema of visible areas Initial Vital Signs Initial Vital Signs: Vital Signs Temperature 97.9 F 05/07/19 02:15 Pulse Rate 141 H 05/07/19 02:15 Respiratory Rate 24 05/07/19 02:15 Blood Pressure 152/89 H 05/07/19 02:15 Pulse Oximetry 99 05/07/19 02:15 Procedures Cardioversion Consent Signed: Yes Indication: rapid atrial fibrillation, symptomatic Stability: Unstable Number of attempts (shocks): 2 Joules used: 150 and 200 Cardiac rhythm post-cardioversion: Rapid Atrial Fib Additional Comments: did not work, will page cardio for discussion on previous visits and medication recommendations Procedural Sedation Consent signed: Yes Time out performed: Yes Indication: cardioversion ASA Class: II Mallampati Airway Classification: Class II IV Propofol dose (mg): 100 Intraservice time/total sedation time (min): 10 ED Sedation Level: Moderate (Concious) Patient Tolerated Procedure: Well Complications: none Course Orders Ordered: ED Orders 05/07/19 02:14 EKG-12 Lead Stat 05/07/19 02:19 Basic Metabolic Panel Stat Complete Blood Count AUTO DIFF Stat Magnesium Stat Thyroid Stimulating Hormone Stat Troponin & CK Cardiac Panel Stat Acetaminophen (Tylenol) 650 mg PO Q6HR PRN PRN Reason: Fever Dextrose (D50w) 25 gm IV PRN PRN; Protocol PRN Reason: Hypoglycemia DILTIAZEM (Diltiazem 125 Mg/125 Ml-D5w) 125 mg in 125 mls @ 5 mls/hr IV TITRATE [facility]; Protocol Last Titration: 05/07/19 04:45 Dose: 5 mg/hr, 5 mls/hr Documented by: Admin: 05/07/19 04:14 Dose: 5 mg/hr, 5 mls/hr Documented by: JEFF Sodium Chloride (Normal Saline 0.9%) 1,000 mls @ 50 mls/hr IV CONT AISHWARYA Magnesium Sulfate (Magnesium Sulfate) 2 gm in 50 mls @ 25 mls/hr IV NOW ONE Stop: 05/07/19 06:09 Potassium Chloride 40 meq/ (Sodium Chloride) 520 mls @ 130 mls/hr IV NOW ONE Stop: 05/07/19 08:13 Insulin Aspart (Novolog Flexpen) 0 unit SUBCUT ACHS AISHWARYA; Protocol Naloxone HCl (Narcan) 0.2 mg IV Q2MIN PRN PRN Reason: Opiate Reversal Ondansetron HCl (Zofran) 4 mg IV Q8HR PRN PRN Reason: Nausea And Vomiting Discontinued Medications Diltiazem HCl (Cardizem) 10 mg IV NOW ONE Stop: 05/07/19 04:00 Last Admin: 05/07/19 04:12 Dose: 10 mg Documented by: JEFF Sodium Chloride (Normal Saline 0.9%) 1,000 mls @ 150 mls/hr IV CONT AISHWARYA Last Infusion: 05/07/19 04:30 Dose: 0 mls/hr Documented by: Admin: 05/07/19 02:23 Dose: 150 mls/hr Documented by: YVAN Naloxone HCl (Narcan) 0.2 mg IV Q2MIN PRN PRN Reason: Opiate Reversal Potassium Chloride (Klor-Con M20) 40 meq PO NOW ONE Stop: 05/07/19 04:11 Propofol (Diprivan) 200 mg IV NOW ONE Stop: 05/07/19 02:15 Last Admin: 05/07/19 02:25 Dose: 200 mg Documented by: YVAN Vital Signs Vital signs: Vital Signs - 8 hr 05/07/19 02:15 05/07/19 02:30 05/07/19 02:35 Temperature 97.9 F Pulse Rate 141 H 135 H 124 H Respiratory Rate 24 21 20 Blood Pressure 152/89 H Blood Pressure [Right Arm] 130/63 134/72 Pulse Oximetry 99 97 97 MDM - Arrhythmia/Palpitations Lab Data Result diagrams: 05/07/19 02:19 05/07/19 02:19 Labs: Lab Results 05/07/19 05/07/19 05/07/19 Range/Units 02:19 02:19 02:19 WBC 9.4 (4.5-11.0) X10^3/uL RBC 4.95 (4.5-5.9) X10^6/uL Hgb 14.5 (13.5-17.5) g/dL Hct 44.1 (41-53) % MCV 89.0 (80-100) fL MCH 29.4 (26-34) PG MCHC 33.0 (30-36) % RDW 14.4 (11.6-14.8) % Plt Count 163 (150-400) X10^3/uL Neut % (Auto) 64.3 (50-75) % Lymph % (Auto) 24.7 L (25-40) % [place] % (Auto) 8.7 (3-14) % Eos % (Auto) 1.8 L (2-4) % Baso % (Auto) 0.5 (0-2) % Neut # (Auto) 6000 (7781-3723) /uL Lymph # (Auto) 2300 (2565-6670) /uL [place] # (Auto) 800 (0-900) /uL Eos # (Auto) 200 (0-450) /uL Baso # (Auto) 0 (0-100) /uL Sodium 141 (137-145) mmol/L Potassium 3.7 (3.4-5.1) mmol/L Chloride 107 (98-107) mmol/L Carbon Dioxide 28 (22-32) mmol/L BUN 16 (9-20) mg/dL Creatinine 0.99 (0.66-1.25) mg/dL Estimated GFR > 60.0 (>60) mL/min BUN/Creatinine Ratio 16.2 (6-22) Glucose 138 H (70-100) mg/dL Calcium 9.1 (8.4-10.2) mg/dL Magnesium 1.8 (1.6-2.3) mg/dL Total Creatine Kinase 77 (55-170) U/L CK-MB (CK-2) TNP CK-MB (CK-2) Rel Index TNP Troponin I < 0.012 (0.01-0.034) ng/mL TSH 2.97 (0.47-4.68) uIU/mL Discharge Plan Departure Patient Disposition: Admitted As Inpatient Clinical Impression: Rapid atrial fibrillation Admit Date/Time: 05/07/19 04:06 Admit Provider: Alexis Mcdonald
[2019-05-07 02:36] LABS: BUN Creatinine Ratio 16.2 (6-22); Blood Urea Nitrogen 16 mg/dL (9-20); Calcium 9.1 mg/dL (8.4-10.2); Carbon Dioxide 28 mmol/L (22-32); Chloride 107 mmol/L (98-107); Creatine Kinase 77 U/L (55-170); Estimated Glomerular Filt Rate > 60.0 mL/min (>60); Glucose 138 mg/dL (70-100); HEMOLYSIS < 15 (0-50); Magnesium 1.8 mg/dL (1.6-2.3); Potassium 3.7 mmol/L (3.4-5.1); Sodium 141 mmol/L (137-145)
--- NOTE | 2019-05-07 02:37 | PC.NURSE ---
Total of 100mg propofol admin by Dr Ricks to achieve sedation. Pt tolerated cardioversion well, now alert and talking. Remains a fib RVR with BP stable.
[2019-05-07 02:47] LABS: Troponin I < 0.012 ng/mL (0.01-0.034)
[2019-05-07 03:33] LABS: Thyroid Stimulating Hormone 2.97 uIU/mL (0.47-4.68)
[2019-05-07] MEDS: dilTIAZem 5 MG/ML SDV 10 MG IV (04:12)
[2019-05-07] MEDS: DILTIAZEM 125 MG/125 ML PIGGYBACK IV (04:14)
--- NOTE | 2019-05-07 04:49 | PM.HP.1 ---
History of Present Illness History of Present Illness Date Patient Seen: 05/07/19 Time Patient Seen: 04:42 Chief complaint: fast heartrate/headache/sob/chest pressure/?afib Narrative: Mr. Raudel Martinez is a 53-year-old male with a history of atrial fibrillation, HFr EF, type 2 diabetes mellitus, obstructive sleep apnea post uvulectomy and obesity who presents to the ER with racing heart. Patient states he went to bed tonight in his usual state health and awoke with racing heart. His associated symptoms of chest pain, shortness of breath and headache. The patient has had multiple recent encounters for atrial fibrillation with initial hospitalization on 03/30/2019 her was treated converted on diltiazem. During that admission the patient underwent echocardiogram was found to have an EF 25%. The patient was subsequently seen in the ER with hospitalist consult on 04/21/2019 with shortness of breath with atrial fibrillation with RVR that had since resolved while in the ER. The patient had waking and pulmonary edema and was discharged home with increased dose of Lasix for 2 weeks. The patient was seen by cardiology at [facility] on 05/04/2019 when he was cardioverted and had his metoprolol dose decreased from 100 mg to 50 mg twice daily post conversion. Patient otherwise denies other complaints or recent illnesses had no fevers or chills nasal congestion or sore throat. He does not lay flat and sleeps on his side related to sleep apnea. He denies chest pain over the last few days. He has chronic shortness of breath in gets winded walking short distances and cannot tolerate climbing stairs. Denies complaints of abdominal pain, nausea vomiting has had no changes in bowel or bladder habits. Reports having lost 15 lb over the last month. He has been compliant with all medications and reports no complaints of melena, hematochezia, hematemesis or hematuria on Xarelto. Upon arrival the patient has a temperature 97.9?, heart rate of 141, blood pressure 152/89, respiratory rate of 24 saturating 99% room air. Urgent cardioversion was attempted at 150 joules in 200 joules without success. Patient chest x-ray taken on 04/21/2019 which showed no no acute cardiopulmonary processes. On laboratory analyses white count 9.4, hemoglobin of 14.5, hematocrit of 44.1 and platelets 163. On electrolytes he has a potassium of 3.7 and magnesium of 1.8. His BUN is 16 in his creatinine is 0.99. His nonfasting glucose is 138. His total CK is 77 and troponin is negative at less than 0.012. His TSH is normal at 2.97. Failing cardioversion the patient is started on diltiazem with a 5 mg bolus and 5 mg infusion. The patient is admitted to the medicine service to ICU for atrial fibrillation with rapid ventricular response. Patient History Medical History (Updated 05/07/19 @ 05:07 by SOHAN Ramos) Diabetes (Acute) HFrEF (heart failure with reduced ejection fraction) (Acute) Hypertension (Acute) MESFIN (obstructive sleep apnea) (Acute) Persistent atrial fibrillation (Acute) Surgical History H/O uvulectomy (Acute) Family & Social History Family History (Updated 05/07/19 @ 05:15 by SOHAN Ramos) Father Alzheimer's dementia Heart disease Mother Cancer Atrial fibrillation Brother Blind Brother Epilepsy Development delay Social History: household members significant other Safety & Behavioral: Feels Safe in Current Yes Environment Tobacco & Substance use: Smoking Status Never smoker alcohol intake never alcohol intake frequency holiday/special occasion Substance Use Type does not use Comment: Patient currently lives with his life partner. Occupation: Unemployed Smoking: Patient has never used tobacco products. Alcohol: Patient denies consuming alcoholic beverages. Substance use: Patient denies recreation pharmaceuticals, herbal or cannabis products. Advanced directives: The patient states his desire to be FULL CODE. He he designates Laynechristina Aragong his significant other to be his surrogate decision maker. Meds Home Medications and Allergies Home Medications Medication Instructions Recorded Confirmed Type acetaminophen 650 mg PO Q4H PRN 04/21/19 05/07/19 History atorvastatin 20 mg PO QPM 04/21/19 05/07/19 History furosemide 40 mg PO QAM 04/21/19 05/07/19 History lisinopril 5 mg PO QAM 04/21/19 05/07/19 History metoprolol succinate 50 mg PO BID 04/21/19 05/07/19 History rivaroxaban [Xarelto] 20 mg PO QPM 04/21/19 05/07/19 History silver sulfadiazine [SSD] 1 applic TOPICAL DAILY 04/21/19 04/21/19 History metformin 500 mg PO BID 05/07/19 05/07/19 History Allergies Allergy/AdvReac Type Severity Reaction Status Date / Time No Known Drug Allergies Allergy Verified 03/30/19 10:26 Review of Systems Review of Systems ROS: Yes All systems reviewed with the patient and are negative except as otherwise documented Exam Vital Signs (past 8 hours): - 05/07/19 02:15 05/07/19 02:30 05/07/19 02:35 Temperature 97.9 F Pulse Rate 141 H 135 H 124 H Respiratory Rate 24 21 20 Blood Pressure 152/89 H Blood Pressure [Right Arm] 130/63 134/72 Pulse Oximetry 99 97 97 05/07/19 04:12 Temperature Pulse Rate 112 H Respiratory Rate Blood Pressure 140/70 Blood Pressure [Right Arm] Pulse Oximetry Oxygen Delivery Method Room Air Narrative Exam Narrative: GENERAL APPEARANCE: well developed, obese male with BMI of 42.7 laying semi recumbent on stretcher, in no acute distress. HEENT: Normocephalic, wears glasses, PERRLA, sclera anicteric, conjunctiva clear, EOMs intact without nystagmus, no sinus tenderness to percussion, no rhinorrhea, mucous membranes are moist and pink without lesions or exudate, poor dentition. NECK/THYROID: neck supple, no JVD, no thyromegaly, trachea midline. LYMPH NODES: no cervical or supraclavicular lymphadenopathy. SKIN: [place], warm and dry, healing burn with scab right 2nd toe. HEART: Irregularly irregular rhythm, S1-S2, no murmur, no rubs or gallops, brisk capillary refill, 2+ edema LUNGS: clear to auscultation bilaterally, no coarseness crackles or wheezing, no cough present CHEST: Symmetrical movement, no accessory muscle use, good tidal volume. ABDOMEN: Soft, round, obese, dull to percussion, no abdominal tenderness, no organomegaly, no flank or suprapubic tenderness, active bowel tones. EXTREMITIES: moves all extremities, strength is 5/5 and symmetrical, no deformities or joint effusions. NEUROLOGIC: AAO x4, no focal neurologic deficits, cranial nerves II-XII grossly intact, bilateral lower extremity neuropathy tooth to mid lower leg, hearing grossly normal to speech. PSYCH: Good eye contact, cooperative, appropriate with stable behavior Objective ECG Impression: Atrial fibrillation with a rate of 129, without ectopy or aberrancy, and no evidence of infarct or ischemia. Similar morphology to prior tracing. Imaging Chest x-ray: My impression: Film taken 04/21/2019: No acute cardiopulmonary processes. Radiologist's impression: Film taken 04/21/2019: No acute cardiopulmonary pathology. Labs Result Diagrams: 05/07/19 02:19 05/07/19 02:19 Labs: Laboratory Results - last 24 hr 05/07/19 05/07/19 05/07/19 02:19 02:19 02:19 WBC 9.4 RBC 4.95 Hgb 14.5 Hct 44.1 MCV 89.0 MCH 29.4 MCHC 33.0 RDW 14.4 Plt Count 163 Neut % (Auto) 64.3 Lymph % (Auto) 24.7 L [place] % (Auto) 8.7 Eos % (Auto) 1.8 L Baso % (Auto) 0.5 Neut # (Auto) 6000 Lymph # (Auto) 2300 [place] # (Auto) 800 Eos # (Auto) 200 Baso # (Auto) 0 Sodium 141 Potassium 3.7 Chloride 107 Carbon Dioxide 28 BUN 16 Creatinine 0.99 Estimated GFR > 60.0 BUN/Creatinine Ratio 16.2 Glucose 138 H Calcium 9.1 Magnesium 1.8 Total Creatine Kinase 77 CK-MB (CK-2) TNP CK-MB (CK-2) Rel Index TNP Troponin I < 0.012 TSH 2.97 Assessment & Plan Assessment & Plan narrative: This is a 53-year-old male who presented to the emergency room with recurrent atrial fibrillation complaining of racing heart with associated chest pain shortness of breath and headache. The failed cardioversion in the ER and is admitted to the ICU for treatment of atrial fibrillation with RVR. 1. Acute Paroxysmal Atrial fibrillation with rapid ventricular response, present on admission, active. -Patient with onset of symptoms service evening waking from sleep with racing heart associated chest pain shortness of breath and headache. -Cardioversion was attempted to 150 and 200 joules in the ER without success. He is started on diltiazem with bolus and infusion which is continued and titrated to heart rate less than 100. -Hemoglobin A1c on prior admission 03/31/2019 was 8.1, TSH today is 2.97, will recheck lipid panel. -No further troponins status post cardioversion x2 -Continue anticoagulation with Xarelto. -Recent decrease in metoprolol dose from 100 mg to 50 mg. Will restart metoprolol succinate 100 mg twice daily. -Potassium is 3.7 will replete with 40 mEq and magnesium is 1.8 replete with 2 g. 2. Type 2 diabetes with peripheral neuropathy, uncontrolled, present on admission, active. -Patient takes metformin 500 mg twice daily at home, admission glucose is 138. A1c from previous admission was 8.1. B/L neuropathy present to mid lower leg. - reports losing 15 lb in 1 month most likely water weight related to increased dose Lasix. -Medium consistent carbohydrate, low-sodium diet -Order Accu-Cheks AC and HS, coverage with low-dose sliding scale insulin. 3. Essential Hypertension, chronic, present on admission -Questionable blood pressure control with pressure elevated on admission at 152/89. -Patient is on metoprolol for rhythm control dose recently reduced to 50 mg daily. Will be restarting metoprolol succinate 100 mg twice daily. -Patient is also prescribed lisinopril 5 mg daily which is on hold while patient is on diltiazem infusion. 4. Obstructive sleep apnea, present on admission -Continued sleep apnea, status post uvulectomy. -MESFIN contributory to risk for atrial fibrillation. Strongly encouraged uses CPAP. 5. Morbid obesity, BMI 42.7, present on admission, active -Morbid obesity comlicit in diabetes, obstructive sleep apnea and atrial fibrillation. -Patient acknowledges 15 lb weight loss likely water weight loss on Lasix. -Request dietitian consult. VTE prophylaxis: Bilateral SCDs, on Xarelto IV fluid: Normal saline TKO Diet: Medium consistent carbohydrate, low-sodium Code status: FULL CODE The patient is admitted to intensive care with atrial fibrillation status post attempted cardioversion x2 without success and continued atrial fibrillation with RVR on diltiazem infusion. Patient is admitted as an inpatient with expected length of stay to be greater than 2 midnights. Critical care time: 40 minutes in direct [id number] with the patient additional time reviewing documentation, lab and testing results. Scores GCS [place] coma scale eye opening: Spontaneous [place] coma scale verbal response: Orientated [place] coma scale motor response: Obey commands [place] coma scale total score: 15
[2019-05-07] MEDS: POTASSIUM CHLORIDE 20 MEQ TAB 40 MEQ PO (05:19)
[2019-05-07] MEDS: SODIUM CHLORIDE 0.9% 1,000 ML 50 ML IV (05:21)
[2019-05-07] MEDS: POTASSIUM CHLORIDE 40 MEQ in SODIUM CHLORIDE 0.9% 500 ML 130 ML IV (05:22)
[2019-05-07] MEDS: MAGNESIUM SULFATE 2 GM/50 ML PIGGYBACK IV (05:42)
--- NOTE | 2019-05-07 07:28 | PC.ADMIT ---
[id number] [facility] [address] Admission Note: The patient,Raudel Martinez,53 y/o, was given written information regarding hospital policies, unit procedures and contact persons. Patient's smoking status: Never smoker. Vital Signs - 8 hr 05/07/19 02:15 05/07/19 02:30 05/07/19 02:35 Temperature 97.9 F Pulse Rate 141 H 135 H 124 H Respiratory Rate 24 21 20 Blood Pressure 152/89 H Blood Pressure [Right Arm] 130/63 134/72 Pulse Oximetry 99 97 97 05/07/19 04:12 05/07/19 04:45 05/07/19 05:02 Temperature 98.1 F Pulse Rate 112 H 98 H 92 H Respiratory Rate 24 18 Blood Pressure 140/70 119/56 L Blood Pressure [Right Arm] 127/73 Pulse Oximetry 96 98 05/07/19 06:00 Temperature Pulse Rate 78 Respiratory Rate 23 Blood Pressure 139/83 Blood Pressure [Right Arm] Pulse Oximetry 95 Patient admitted to ICU at 0500, A/O x4, diltiazem gtt initially at 5ml/hr, decreased to 2mg/hr, still in A-fib rate 70s, BP 139/83. PO potassium given, 40meq K+ rider and 2gm Mg+ started. Denies chest pain or shortness of breath.
[2019-05-07] MEDS: FUROSEMIDE 20 MG TABLET 40 MG PO (08:31)
[2019-05-07] MEDS: METOPROLOL ER 50 MG TABLET 100 MG PO (08:36)
--- NOTE | 2019-05-07 08:44 | CM.DANOTE ---
DCP: Case received, EMR reviewed and met with patient. Introduced self and role. Was able to obtain information from patient regarding baseline activity, health, and living situation. DCP assessment completed with information currently available. Patient is a 53 year old male who admitted early this morning to the care of the hospitalist team. PCP: Dr. Sumner. Payer: confirmed: [employer]. Patient came to the hospital via private vehicle secondary to a fast and irregular heart rate. Patient had recently been at [facility] for a cardioversion on 05/03. Patient has history of a-fib, diabetes type 2. Patient holds current diagnosis of acute paroxymal a-fib. Patient had been cardioverted again upon arrival at this hospital. He is currently on diltiazem drip, which was just completed, according to ICU nurse, Louisa. Met with patient in his room. He is pleasant, alert and oriented. Confirmed that he resides in [place] with his significant other, Layne Jackson. Patient stated that he does not drive. He also mentioned that he only walks short distances, because he gets short of breath. 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 He is unemployed, and currently from [place]. He uses no DME supplies. P: DCP to continue to follow and be available for any resources. He should be able to go home when he is medically stable. Mandie Santillan RN/Title Assistant
[2019-05-07 10:26] LABS: BUN Creatinine Ratio 15.7 (6-22); Blood Urea Nitrogen 14 mg/dL (9-20); Calcium 8.4 mg/dL (8.4-10.2); Carbon Dioxide 26 mmol/L (22-32); Chloride 109 mmol/L (98-107); Estimated Glomerular Filt Rate > 60.0 mL/min (>60); Glucose 175 mg/dL (70-100); HEMOLYSIS 22 (0-50); Magnesium 2.2 mg/dL (1.6-2.3); Potassium 4.5 mmol/L (3.4-5.1); Sodium 140 mmol/L (137-145)
[2019-05-07 10:33] LABS: Cholesterol 78 mg/dL (140-199); HDL Cholesterol 24 mg/dL (40-60); LDL Cholesterol Calculated 36 mg/dL (<100); Triglycerides 89 mg/dL (35-150)
--- NOTE | 2019-05-07 13:46 | PM.DS.1 ---
History of Present Illness History of Present Illness Date Patient Seen: 05/07/19 Time Patient Seen: 13:46 Chief complaint: fast heartrate/headache/sob/chest pressure/?afib Narrative: As per SOHAN Ramos: Mr. Raudel Martinez is a 53-year-old male with a history of atrial fibrillation, HFr EF, type 2 diabetes mellitus, obstructive sleep apnea post uvulectomy and obesity who presents to the ER with racing heart. Patient states he went to bed tonight in his usual state health and awoke with racing heart. His associated symptoms of chest pain, shortness of breath and headache. The patient has had multiple recent encounters for atrial fibrillation with initial hospitalization on 03/30/2019 her was treated converted on diltiazem. During that admission the patient underwent echocardiogram was found to have an EF 25%. The patient was subsequently seen in the ER with hospitalist consult on 04/21/2019 with shortness of breath with atrial fibrillation with RVR that had since resolved while in the ER. The patient had waking and pulmonary edema and was discharged home with increased dose of Lasix for 2 weeks. The patient was seen by cardiology at [facility] on 05/04/2019 when he was cardioverted and had his metoprolol dose decreased from 100 mg to 50 mg twice daily post conversion. Patient otherwise denies other complaints or recent illnesses had no fevers or chills nasal congestion or sore throat. He does not lay flat and sleeps on his side related to sleep apnea. He denies chest pain over the last few days. He has chronic shortness of breath in gets winded walking short distances and cannot tolerate climbing stairs. Denies complaints of abdominal pain, nausea vomiting has had no changes in bowel or bladder habits. Reports having lost 15 lb over the last month. He has been compliant with all medications and reports no complaints of melena, hematochezia, hematemesis or hematuria on Xarelto. Upon arrival the patient has a temperature 97.9?, heart rate of 141, blood pressure 152/89, respiratory rate of 24 saturating 99% room air. Urgent cardioversion was attempted at 150 joules in 200 joules without success. Patient chest x-ray taken on 04/21/2019 which showed no no acute cardiopulmonary processes. On laboratory analyses white count 9.4, hemoglobin of 14.5, hematocrit of 44.1 and platelets 163. On electrolytes he has a potassium of 3.7 and magnesium of 1.8. His BUN is 16 in his creatinine is 0.99. His nonfasting glucose is 138. His total CK is 77 and troponin is negative at less than 0.012. His TSH is normal at 2.97. Failing cardioversion the patient is started on diltiazem with a 5 mg bolus and 5 mg infusion. The patient is admitted to the medicine service to ICU for atrial fibrillation with rapid ventricular response. Discharge Providers Provider Date of admission: 05/07/19 04:06 Discharge Date: 05/07/19 Primary care physician: Reynaldo Sumner MD Consults: 05/07/19 04:18 Consult to Dietitian, Adult Routine Comment: Reason For Exam: Diabetes, morbid obesity 05/07/19 04:20 Consult to Discharge Planning Routine Comment: Discharge provider: Alexis Ceja DO Summary Hospital Course Hospital Course: This is a 53-year-old male who presented to the emergency room with recurrent atrial fibrillation complaining of racing heart with associated chest pain shortness of breath and headache. The failed cardioversion in the ER and was admitted to the ICU for treatment of atrial fibrillation with RVR on diltiazem infusion. Home metoprolol was increased back to 100 mg BID, and patient remained in afib but with improved rate control. He was discharged home and should follow up with cardiology as an outpatient when able. 1. Acute Paroxysmal Atrial fibrillation with rapid ventricular response, present on admission, active. -Patient with onset of symptoms service evening waking from sleep with racing heart associated chest pain shortness of breath and headache. These resolved after rate control was achieved. -Cardioversion was attempted to 150 and 200 joules in the ER without success. He was started on diltiazem infusion in the ED which was weaned off after increasing metoprolol back to 100 mg BID. -Hemoglobin A1c on prior admission 03/31/2019 was 8.1, TSH 2.97, lipid panel unremarkable. -No further troponins status post cardioversion x2 -Continue anticoagulation with Xarelto. -Potassium was 3.7 on admission repleted with 40 mEq and magnesium was 1.8 repleted with 2 g IV. 2. Type 2 diabetes with peripheral neuropathy, uncontrolled, present on admission, active. -Patient takes metformin 500 mg twice daily at home, admission glucose was 138. A1c from previous admission was 8.1. B/L neuropathy present to mid lower leg. - reports losing 15 lb in 1 month most likely water weight related to increased dose Lasix. -Medium consistent carbohydrate, low-sodium diet -no changes were made during this admission. 3. Essential Hypertension, chronic, present on admission -Questionable blood pressure control with pressure elevated on admission at 152/89. -improved after resuming metoprolol as noted above. 4. Obstructive sleep apnea, present on admission -Continued sleep apnea, status post uvulectomy. -MESFIN contributory to risk for atrial fibrillation. Strongly encouraged CPAP use. 5. Morbid obesity, BMI 42.7, present on admission, active -Morbid obesity comlicit in diabetes, obstructive sleep apnea and atrial fibrillation. -Patient acknowledges 15 lb weight loss likely water weight loss on Lasix. Exam Vital Signs (past 8 hours): - 05/07/19 06:00 05/07/19 08:00 05/07/19 08:36 Temperature 98.0 F Pulse Rate 78 86 92 H Respiratory Rate 23 24 Blood Pressure 139/83 116/77 116/77 Pulse Oximetry 95 95 05/07/19 09:40 05/07/19 11:37 Temperature 97.4 F L Pulse Rate 82 81 Respiratory Rate 22 Blood Pressure 138/84 Pulse Oximetry 95 Oxygen Delivery Method Room Air Oxygen Flow Rate 0 Narrative Exam Narrative: GENERAL APPEARANCE: well developed, obese male with BMI of 42.7 laying semi recumbent on stretcher, in no acute distress. HEENT: Normocephalic, wears glasses, PERRLA, sclera anicteric, conjunctiva clear, EOMs intact without nystagmus, no sinus tenderness to percussion, no rhinorrhea, mucous membranes are moist and pink without lesions or exudate, poor dentition. NECK/THYROID: neck supple, no JVD, no thyromegaly, trachea midline. LYMPH NODES: no cervical or supraclavicular lymphadenopathy. SKIN: [place], warm and dry, healing burn with scab right 2nd toe. HEART: Irregularly irregular rhythm with normal rate, S1-S2, no murmur, no rubs or gallops, brisk capillary refill, 2+ edema LUNGS: clear to auscultation bilaterally, no coarseness crackles or wheezing, no cough present CHEST: Symmetrical movement, no accessory muscle use, good tidal volume. ABDOMEN: Soft, round, obese, dull to percussion, no abdominal tenderness, no organomegaly, no flank or suprapubic tenderness, active bowel tones. EXTREMITIES: moves all extremities, strength is 5/5 and symmetrical, no deformities or joint effusions. NEUROLOGIC: AAO x4, no focal neurologic deficits, cranial nerves II-XII grossly intact, bilateral lower extremity neuropathy tooth to mid lower leg, hearing grossly normal to speech. PSYCH: Good eye contact, cooperative, appropriate with stable behavior Objective Labs Result Diagrams: 05/07/19 02:19 05/07/19 10:08 Labs: Laboratory Results - last 24 hr 05/07/19 05/07/19 05/07/19 02:19 02:19 02:19 WBC 9.4 RBC 4.95 Hgb 14.5 Hct 44.1 MCV 89.0 MCH 29.4 MCHC 33.0 RDW 14.4 Plt Count 163 Neut % (Auto) 64.3 Lymph % (Auto) 24.7 L [place] % (Auto) 8.7 Eos % (Auto) 1.8 L Baso % (Auto) 0.5 Neut # (Auto) 6000 Lymph # (Auto) 2300 [place] # (Auto) 800 Eos # (Auto) 200 Baso # (Auto) 0 Sodium 141 Potassium 3.7 Chloride 107 Carbon Dioxide 28 BUN 16 Creatinine 0.99 Estimated GFR > 60.0 BUN/Creatinine Ratio 16.2 Glucose 138 H Calcium 9.1 Magnesium 1.8 Total Creatine Kinase 77 CK-MB (CK-2) TNP CK-MB (CK-2) Rel Index TNP Troponin I < 0.012 Triglycerides Cholesterol LDL Cholesterol, Calc HDL Cholesterol TSH 2.97 05/07/19 05/07/19 10:08 10:08 WBC RBC Hgb Hct MCV MCH MCHC RDW Plt Count Neut % (Auto) Lymph % (Auto) [place] % (Auto) Eos % (Auto) Baso % (Auto) Neut # (Auto) Lymph # (Auto) [place] # (Auto) Eos # (Auto) Baso # (Auto) Sodium 140 Potassium 4.5 Chloride 109 H Carbon Dioxide 26 BUN 14 Creatinine 0.89 Estimated GFR > 60.0 BUN/Creatinine Ratio 15.7 Glucose 175 H Calcium 8.4 Magnesium 2.2 Total Creatine Kinase CK-MB (CK-2) CK-MB (CK-2) Rel Index Troponin I Triglycerides 89 Cholesterol 78 L LDL Cholesterol, Calc 36 HDL Cholesterol 24 L TSH Discharge Plan Discharge Plan Patient Disposition: Home Discharge comment: You were admitted to the hospital with a rapid heart rate and atrial fibrillation. You improved after resuming her previous dose of metoprolol 100 mg twice daily. You should continue this medication and follow-up with your marketing education teacher for further management. Discharge orders & Medications Prescriptions: New metoprolol succinate 50 mg Tablet Extended Release 24 Hr 100 mg PO BID 30 Days Qty: 120 RF: 0 Continued silver sulfadiazine [SSD] 1 % cream 1 applic TOPICAL DAILY RF: 0 acetaminophen 325 mg Tablet 650 mg PO Q4H PRN (Reason: Pain, Mild) RF: 0 atorvastatin 20 mg tablet 20 mg PO QPM RF: 0 lisinopril 5 mg tablet 5 mg PO QAM RF: 0 furosemide 20 mg tablet 40 mg PO QAM RF: 0 Xarelto 20 mg tablet 20 mg PO QPM RF: 0 metformin 500 mg Tablet Extended Release 24hr 500 mg PO BID RF: 0 Discontinued metoprolol succinate 100 mg tablet extended release 24 hr 50 mg PO BID RF: 0 Follow up/Referrals: Reynaldo Sumner MD [Primary Care Provider] - Discharge Health Status Health Concerns: atrial fibrilation Diet/Activity/Treatments Diet: Diet as Tolerated Activity: As tolerated Visit Report/Discharge Packet Visit Report Forms: Patient Portal/API, Stroke Signs & Symptoms Discharge Data Primary Care Provider: Reynaldo Sumner Discharges patient from system. Discharge Date/Time: 05/07/19 15:07 Quality VTE Deep Vein Thrombosis/Pulmonary Embolism Present on Admission: No
--- NOTE | 2019-05-07 15:05 | PC.NURSE ---
discharged to home with changes in metoprolol - fully understands the plan - discharged to home at this time
== END 2019-05-07 15:07 | disposition home or self-care (01) ==
LOC: ED 02:13 → ICU 05:05
PROVIDERS: Admitting Provider Nurse Practitioner Adult Health; Emergency Provider Emergency Medicine; PCP Family Medicine; Referring Provider Emergency Medicine; Visit Provider Nurse Practitioner Adult Health
DX: I48.0 Paroxysmal atrial fibrillation (principal); R00.2 Palpitations; R51 Headache; R06.02 Shortness of breath; I10 Essential (primary) hypertension; E78.5 Hyperlipidemia, unspecified; G47.33 Obstructive sleep apnea (adult) (pediatric); E11.42 Type 2 diabetes mellitus with diabetic polyneuropathy; E66.01 Morbid (severe) obesity due to excess calories; Z68.41 Body mass index [BMI] 40.0-44.9, adult
CPT/HCPCS: 36415; 80048; 80061; 82550; 82962; 83735; 84443; 84484; 85025; 92960; 93005; 96361; 96365; 96366; 96375; 99152; 99285; G0378; J2704; J3480

== ENCOUNTER → 2019-06-19 14:24 | Outpatient (CLI) | payer OTHER, MEDICAID, SELFPAY ==
[2019-05-07 05:46] VITALS: BMI 42.7
--- NOTE | 2019-06-19 | DI.ECHO.S_ITS ---
[place] [facility] +---------+ : : [address] : [address] : : : : [id number] : : : : Phone: [phone]+ Echocardiogram Report + + :Name: BARRERA WEEKS Study Date: 06/19/2019 Height: 74 in : :[facility] Weight: 323 lb : : Gender: Male BSA: 2.7 m2 : :: 1965 Age: 53 yrs BP: 132/84 mmHg: :Reason For Study: ATRIAL FIBRILLATION : :Ordering Physician: Mansi : :Nacho Cain Performed By: Holli Roman : :Referring: MANSI COLEMAN : + + Interpretation Summary This was a technically difficult study. There is moderate global hypokinesis of the left ventricle. The ejection fraction is moderately reduced, estimated to be 35-40%, by visual estimation with beat to beat variability given underlying atrial fibrillation and variable RR interval. The right ventricle is mildly dilated. The right ventricular systolic function is normal. Pulmonary artery pressures cannot be estimated because of the lack of a measurable TR jet velocity but the IVC suggests a CVP of around 3 mmHg. No hemodynamically significant valvular abnormalities. Procedure: A two-dimensional transthoracic echocardiogram with color flow and Doppler was performed. The study quality was technically adequate. Comparison is made with the echocardiogram of 03/31/2019. A contrast injection of Definity was performed to improve assessment of LV function. Contrast was injected into an intravenous site in the left arm. The patient was in atrial fibrillation with heart rates between 72-91 bpm during the exam. Left Ventricle: The left ventricle is normal in size. There is mild concentric left ventricular hypertrophy. There is no thrombus. The ejection fraction is estimated to be 35-40%. There is moderate global hypokinesis of the left ventricle. Diastolic function could not be accurately assessed due to atrial fibrillation. Right Ventricle: The right ventricle is mildly dilated. The right ventricular systolic function is normal. Atria: Both atria are normal in size. There is no Doppler evidence for an interatrial shunt. Mitral Valve: The mitral valve is normal in structure and function. There is mild mitral regurgitation. Aortic Valve: The aortic valve is not well visualized. The aortic valve is grossly normal. There is no aortic valve stenosis. No aortic regurgitation is present. Tricuspid Valve: The tricuspid valve is normal in structure and function. There is a trace or physiologic amount of tricuspid regurgitation. Pulmonary artery pressures cannot be estimated because of the lack of a measurable TR jet velocity but the IVC suggests a CVP of around 3 mmHg. Pulmonic Valve: The pulmonic valve is not well visualized. There is mild pulmonic regurgitation. Great Vessels: The aortic root is normal size. The ascending aorta is normal in size. The IVC is of normal diameter and collapses greater than 50% with a sniff. This suggests a low right atrial pressure of 3 mm Hg. Pericardium/ Pleura There is no pericardial effusion. There is no pleural effusion. MMode/2D Measurements & Calculations LVIDd: 5.3 cm LVOT diam: 2.4 cm LVIDs: 4.4 cm Ao root diam: 3.1 cm FS: 17.2 % asc Aorta Diam: 3.1 cm EPSS: 1.4 cm Ao Arch Diam (Prox Trans): 3.0 cm IVSd: 1.1 cm LVPWd: 1.3 cm LV montemayor. diameter/BSA (cm/m^2): 2.0 LV sys. diameter/BSA (cm/m^2): 1.6 LA A2 area: 21.7 cm2 RA long axis: 5.0 cm LA A4 area: 22.3 cm2 RA area: 17.4 cm2 LA length (vol): 6.0 cm RA vol: 51.5 ml LA vol: 68.8 ml RA : 19.3 ml/m2 LA vol index: 25.8 ml/m2 IVC diam: 1.5 cm RVD1 (basal): 4.1 cm TAPSE: 2.1 cm Doppler Measurements & Calculations Ao V2 max: 120.6 cm/sec LVOT Max Yoandy: 93.7 cm/sec Ao V2 mean: 86.9 cm/sec LV V1 max P.5 mmHg Ao max P.8 mmHg LV V1 VTI: 17.9 cm Ao mean P.3 mmHg DIAMOND(I,D): 3.6 cm2 Ao V2 VTI: 22.1 cm DIAMOND(V,D): 3.4 cm2 sev ratio: 0.81 DIAMOND indexed to BSA (cm^2/m^2): 1.3 MV E max yoandy: 116.2 cm/sec TR max yoandy: 205.3 cm/sec MV A max yoandy: 2.0 cm/sec TR max P.9 mmHg MV E/A: 57.5 PA V2 max: 66.2 cm/sec Med Peak E' Yoandy: 8.7 cm/sec PA V2 mean: 43.7 cm/sec E/E' med: 13.4 PA mean P.86 mmHg Lat Peak E' Yoandy: 14.7 cm/sec E/E' lat: 7.9 E/e' average: 10.7 MV dec time: 0.16 sec SV(LVOT): 78.5 ml Electronically signed by: Mansi Coleman M.D. on Reading Physician:06/21/2019 06:13 PM
== END ==
PROVIDERS: PCP Family Medicine; Referring Provider Hospitalist; Visit Provider Hospitalist
DX: I48.91 Unspecified atrial fibrillation (principal); I34.0 Nonrheumatic mitral (valve) insufficiency; I37.1 Nonrheumatic pulmonary valve insufficiency
CPT/HCPCS: 93306; Q9957

== ENCOUNTER 2019-07-04 13:24 | Emergency (ER) | payer OTHER, MEDICAID, SELFPAY ==
[2019-05-07 05:46] VITALS: BMI 42.7
[2019-07-04 13:20] VITALS: BP 178/80; PULSE 58; RESP 14; TEMP 36.5; O2SAT 100
--- NOTE | 2019-07-04 13:29 | DI.RAD.S_ITS ---
PROCEDURE: XR CHEST 1V INDICATIONS: palpitations, SOB TECHNIQUE: One view of the chest was acquired. COMPARISON: [facility], CR, XR CHEST 1V, 04/21/2019, 11:16. FINDINGS: Surgical changes and devices: None. Lungs and pleura: Lungs demonstrate mild bilateral upper lobe alveolar opacities superimposed on coarse interstitial markings.. No pleural effusions or pneumothorax. Mediastinum: Mediastinal contours appear normal. Heart size is stable, tip limits of. Bones and chest wall: No suspicious bony lesions. Overlying soft tissues appear unremarkable. IMPRESSION: 1. Mild bilateral upper lobe alveolar opacities. 2. Chronically coarse interstitial markings suggesting chronic edema. Dictated by: Kaylin Brewer M.D. on 07/04/2019 at 14:32 Approved by: Kaylin Brewer M.D. on 07/04/2019 at 14:37
--- NOTE | 2019-07-04 13:35 | DI.CT.S_ITS ---
PROCEDURE: CT HEAD/BRAIN WO CON INDICATIONS: dizziness, HERNANDEZ, anticoagulation TECHNIQUE: Noncontrast 4.5 mm thick angled axial sections acquired from the foramen magnum to the vertex, with coronal and sagittal reformats. For radiation dose reduction, the following was used: automated exposure control, adjustment of mA and/or kV according to patient size. COMPARISON: None. FINDINGS: Image quality: Excellent. CSF spaces: Basal cisterns are patent. No extra-axial fluid collections. Ventricles are normal in size and shape. Brain: No midline shift. No intracranial masses or hemorrhage. Davis-white matter interface is normal. Skull and face: Calvarium and visualized facial bones are intact, without suspicious lesions. Sinuses: Visualized sinuses and mastoids are clear. IMPRESSION: 1. No acute intracranial process. Dictated by: Leilani Reinoso M.D. on 07/04/2019 at 13:52 Approved by: Leilani Reinoso M.D. on 07/04/2019 at 13:52
[2019-07-04 13:36] LABS: Add Manual Diff / Slide Review NO; Basophils Absolute Auto 100 /uL (0-100); Basophils Percent Auto 0.8 % (0-2); Eosinophils Absolute Auto 100 /uL (0-450); Eosinophils Percent Auto 1.7 % (2-4); Hematocrit 44.7 % (41-53); Lymphocytes Absolute Auto 1800 /uL (1100-4500); Lymphocytes Percent Auto 24.5 % (25-40); Mean Corpuscular HGB Conc 33.6 % (30-36); Mean Corpuscular Hemoglobin 29.7 PG (26-34); Mean Corpuscular Volume 88.6 fL (80-100); Monocytes Absolute Auto 800 /uL (0-900); Neutrophils Absolute Auto 4500 /uL (1500-7000); Platelet Count 158 X10^3/uL (150-400); Red Blood Cell Count 5.05 X10^6/uL (4.5-5.9); Red Cell Distribution Width 14.3 % (11.6-14.8); White Blood Cell Count 7.2 X10^3/uL (4.5-11.0)
[2019-07-04 13:39] VITALS: BP 160/64; PULSE 54; RESP 12; O2SAT 99
[2019-07-04] MEDS: ASPIRIN 81 MG CHEW TAB 324 MG PO (13:46)
[2019-07-04] MEDS: SODIUM CHLORIDE 0.9% 1,000 ML 150 ML IV (13:46)
[2019-07-04 13:54] LABS: Alanine Aminotransferase 28 IU/L (<50); Albumin 4.3 g/dL (3.5-5.0); Albumin Globulin Ratio 1.2 (1.0-2.8); Alkaline Phosphatase 52 U/L (38-126); BUN Creatinine Ratio 16.2 (6-22); Bilirubin Total 0.8 mg/dL (0.2-1.3); Blood Urea Nitrogen 17 mg/dL (9-20); Calcium 9.1 mg/dL (8.4-10.2); Carbon Dioxide 32 mmol/L (22-32); Chloride 102 mmol/L (98-107); Creatine Kinase 75 U/L (55-170); Estimated Glomerular Filt Rate > 60.0 mL/min (>60); Globulin 3.7 g/dL (1.7-4.1); Glucose 131 mg/dL (70-100); Lipase 96 U/L (23-300); Sodium 141 mmol/L (137-145)
[2019-07-04 13:57] LABS: Aspartate Aminotransferase 31 IU/L (17-59); HEMOLYSIS 61 (0-50)
[2019-07-04 14:05] LABS: Troponin I < 0.012 ng/mL (0.01-0.034)
--- NOTE | 2019-07-04 14:16 | ED.DIZZY ---
HPI - Dizziness General Chief Complaint: Dizziness Stated Complaint: Dizziness Time Seen by Provider: 07/04/19 13:25 Source: family and EMS Mode of arrival: EMS Limitations: no limitations History of Present Illness HPI Narrative: 53-year-old male with history of hypertension and AFib presents by EMS for evaluation of dizziness over the past day at least. Patient denies any palpitations or chest pain but does admit to recent changes in medications. He has been having trouble with tolerating his metoprolol and recently had it switched from 25-12.5. Patient denies nausea, vomiting or diarrhea. He has had no dysuria, frequency or urgency. When his dizziness started he did have a twinge of pain on the left side of his head Related Data Home Medications Medication Instructions Recorded Confirmed Xarelto 20 mg PO QPM 04/21/19 07/04/19 acetaminophen 650 mg PO Q4H PRN 04/21/19 07/04/19 atorvastatin 20 mg PO QPM 04/21/19 07/04/19 furosemide 60 mg PO QAM 04/21/19 07/04/19 lisinopril 5 mg PO QAM 04/21/19 07/04/19 metformin 500 mg PO BID 05/07/19 07/04/19 amiodarone 200 mg PO QAM 07/04/19 07/04/19 metoprolol succinate 25 mg PO BID 07/04/19 07/04/19 Allergies Allergy/AdvReac Type Severity Reaction Status Date / Time No Known Drug Allergies Allergy Verified 07/04/19 13:38 Review of Systems Constitutional Constitutional: Denies chills, Denies fatigue, Denies fever(s), Denies frequent falls, Denies lethargy and Denies weakness Eyes Eyes: Denies change in vision, Denies eye discharge, Denies irritation and Denies loss of vision ENT Ears, Nose, Mouth, and Throat: Denies change in voice, Denies dizziness, Denies neck pain, Denies sore throat and Denies throat swelling Cardiovascular Cardiovascular: Denies chest pain, Denies irregular heart rhythm, Denies lightheadedness, Denies palpitations, Denies dyspnea, Denies dyspnea on exertion and Denies orthopnea Comments: Dizziness Respiratory Respiratory: Denies cough, Denies dyspnea, Denies dyspnea on exertion and Denies wheezing Gastrointestinal Gastrointestinal: Denies abdominal pain, Denies change in bowel habits, Denies diarrhea, Denies nausea and Denies vomiting Genitourinary Genitourinary: Denies hematuria, Denies flank pain, Denies urinary incontinence and Denies urinary urgency Musculoskeletal Musculoskeletal: Denies back pain, Denies muscle weakness, Denies neck pain, Denies numbness and Denies tingling Integumentary/Breasts Skin/Breast: Denies pruritus, Denies erythema, Denies rash and Denies wounds Neurologic Neurologic: Denies behavioral changes, Denies confusion, Denies dizziness, Denies frequent falls, Denies loss of vision, Denies numbness, Denies tingling and Denies weakness Psychiatric Psychiatric: Denies anxiety, Denies behavioral changes, Denies confusion, Denies depression, Denies homicidal ideation and Denies suicidal ideation Endocrine Endocrine: Denies fatigue, Denies flushing and Denies palpitations Hematologic/Lymphatic Hematologic/Lymphatic: Denies easy bruising Allergic/Immunologic Allergic/Immunologic: Denies urticaria, Denies throat swelling and Denies wheezing Patient History Medical History Diabetes (Acute) HFrEF (heart failure with reduced ejection fraction) (Acute) Hypertension (Acute) MESFIN (obstructive sleep apnea) (Acute) Persistent atrial fibrillation (Acute) Surgical History H/O uvulectomy (Acute) Family History Father Alzheimer's dementia Heart disease Mother Cancer Atrial fibrillation Brother Blind Brother Epilepsy Development delay Social History household members: significant other Smoking Status: Never smoker alcohol intake: never Smoking Status: Never smoker alcohol intake frequency: holidays/special occasions only Substance Use Type: does not use Exam Narrative Exam Narrative: GENERAL: [53] year old patient appears stated age. Well-nourished, well-developed patient, in mild distress. HEAD: Atraumatic. Normocephalic. EYES: Pupils equal round and reactive. Extraocular motions intact. No scleral icterus. No injection or drainage. ENT: Nose without bleeding, purulent drainage. Throat without erythema, tonsillar hypertrophy or exudate. Airway patent. NECK: Trachea midline. Non tender CARDIOVASCULAR: Regular rate and rhythm without murmurs, gallops, or rubs. RESPIRATORY: Clear to auscultation. Breath sounds equal bilaterally. No wheezes, rales, or rhonchi. GASTROINTESTINAL: Abdomen soft, non-tender, nondistended. EXTREMITIES: No edema or joint tenderness. BACK: Nontender without deformity or crepitance. No flank tenderness. NEURO: AOx3. SKIN: No rash or erythema of visible areas NIH Stroke Scale 1a. LOC: Patient is alert and keenly responsive (0) 1b. LOC Questions: Patient answers both LOC questions accurately (0) 1c. LOC Commands: Patient performs both tasks correctly (0) 2. Best Gaze: Normal (0) 3. Visual: No visual loss (0) 4. Facial palsy: Normal symmetrical movements (0) 5. Motor arm: No drift (0) 6. Motor leg: No drift (0) 7. Limb ataxia: Absent (0) 8. Sensory: Normal (0) 9. Best language: No aphasia; normal (0) 10. Dysarthria: Normal (0) 11. Extinction and inattention: No abnormality (0) NIHSS: 0 Initial Vital Signs Initial Vital Signs: Vital Signs Temperature 97.7 F 07/04/19 13:20 Pulse Rate 58 L 07/04/19 13:20 Respiratory Rate 14 07/04/19 13:20 Blood Pressure 178/80 H 07/04/19 13:20 Pulse Oximetry 100 07/04/19 13:20 Course Orders Ordered: ED Orders 07/04/19 13:29 XR chest 1V Stat EKG-12 Lead Stat 07/04/19 13:30 Complete Blood Count AUTO DIFF Stat Comprehensive Metabolic Panel Stat Lipase Stat Troponin & CK Cardiac Panel Stat 07/04/19 13:35 CT head/brain wo con Stat Discontinued Medications Aspirin (Aspirin Chew) 324 mg PO NOW ONE Stop: 07/04/19 13:30 Last Admin: 07/04/19 13:46 Dose: 324 mg Documented by: SHARLA Sodium Chloride (Normal Saline 0.9%) 1,000 mls @ 150 mls/hr IV CONT AISHWARYA Last Infusion: 07/04/19 15:02 Dose: 0 mls/hr Documented by: Admin: 07/04/19 13:46 Dose: 150 mls/hr Documented by: SHARLA Vital Signs Vital signs: Vital Signs - 8 hr 07/04/19 13:20 07/04/19 13:39 07/04/19 14:45 Temperature 97.7 F Pulse Rate 58 L 54 L 48 L Respiratory Rate 14 12 14 Blood Pressure 178/80 H Blood Pressure [Right Arm] 160/64 H 130/72 Pulse Oximetry 100 99 99 MDM - Dizziness Lab Data Result diagrams: 07/04/19 13:30 07/04/19 13:30 Labs: Lab Results 07/04/19 07/04/19 Range/Units 13:30 13:30 WBC 7.2 (4.5-11.0) X10^3/uL RBC 5.05 (4.5-5.9) X10^6/uL Hgb 15.0 (13.5-17.5) g/dL Hct 44.7 (41-53) % MCV 88.6 (80-100) fL MCH 29.7 (26-34) PG MCHC 33.6 (30-36) % RDW 14.3 (11.6-14.8) % Plt Count 158 (150-400) X10^3/uL Neut % (Auto) 62.0 (50-75) % Lymph % (Auto) 24.5 L (25-40) % [place] % (Auto) 11.0 (3-14) % Eos % (Auto) 1.7 L (2-4) % Baso % (Auto) 0.8 (0-2) % Neut # (Auto) 4500 (1887-2898) /uL Lymph # (Auto) 1800 (2599-7668) /uL [place] # (Auto) 800 (0-900) /uL Eos # (Auto) 100 (0-450) /uL Baso # (Auto) 100 (0-100) /uL Sodium 141 (137-145) mmol/L Potassium 4.0 (3.4-5.1) mmol/L Chloride 102 (98-107) mmol/L Carbon Dioxide 32 (22-32) mmol/L BUN 17 (9-20) mg/dL Creatinine 1.05 (0.66-1.25) mg/dL Estimated GFR > 60.0 (>60) mL/min BUN/Creatinine Ratio 16.2 (6-22) Glucose 131 H (70-100) mg/dL Calcium 9.1 (8.4-10.2) mg/dL Total Bilirubin 0.8 (0.2-1.3) mg/dL AST 31 (17-59) IU/L ALT 28 (<50) IU/L Alkaline Phosphatase 52 (38-126) U/L Total Creatine Kinase 75 (55-170) U/L CK-MB (CK-2) TNP CK-MB (CK-2) Rel Index TNP Troponin I < 0.012 (0.01-0.034) ng/mL Total Protein 8.0 (6.3-8.2) g/dL Albumin 4.3 (3.5-5.0) g/dL Globulin 3.7 (1.7-4.1) g/dL Albumin/Globulin Ratio 1.2 (1.0-2.8) Lipase 96 (23-300) U/L Imaging Data CT scan - head: Radiologist's Impression: Chart Viewer Diagnostics DATE TYPE STATUS AUTHOR Hx 07/04/19 13:35 Leilani Reinoso 07/04/19 13:29 Kaylin Brewer 06/19/19 00:00 Eric Griffith 05/07/19 04:06 04/21/19 11:12 Roberto Contreras 04/01/19 09:45 03/30/19 14:25 Felecia Munoz 03/30/19 10:17 Slick Beatty Kenneth R 53, M0 1965 [facility] ER, Main ED 150.593kg Dizziness Search Chart No Data to Display ONSET Today 15:25 Raudel Martinez M 1965 [place] [address] CT Scan Report Signed Patient: Bruce Martinezh RMR#: [id number] : 1965Acct:[id number] Age/Sex: 53 / MDate of Service: 07/04/19 Loc: ED Accession Number: [id number] Procedure: CT head/brain wo con Ordering Provider: Antolin Ricks D.O. PROCEDURE: CT HEAD/BRAIN WO CON INDICATIONS: dizziness, HERNANDEZ, anticoagulation TECHNIQUE: Noncontrast 4.5 mm thick angled axial sections acquired from the foramen magnum to the vertex, with coronal and sagittal reformats. For radiation dose reduction, the following was used: automated exposure control, adjustment of mA and/or kV according to patient size. COMPARISON: None. FINDINGS: Image quality: Excellent. CSF spaces: Basal cisterns are patent. No extra-axial fluid collections. Ventricles are normal in size and shape. Brain: No midline shift. No intracranial masses or hemorrhage. Davis-white matter interface is normal. Skull and face: Calvarium and visualized facial bones are intact, without suspicious lesions. Sinuses: Visualized sinuses and mastoids are clear. IMPRESSION: 1. No acute intracranial process. Dictated by: Leilani Reinoso M.D. on 07/04/2019 at 13:52 Approved by: Leilani Reinoso M.D. on 07/04/2019 at 13:52 [facility] Narrative Medical decision making narrative: Multiple etiologies for patient's symptoms considered including: [arrhythmia versus cardiac ischemia versus other] Patient's symptoms improved or duration of stay with above-stated therapies. Findings and discharge diagnosis discussed with patient/family followed by verbalization of understanding Return precautions discussed with patient/family whom verbalize understanding. Discharge Plan Departure Patient Disposition: Home Clinical Impression: Dizziness Discharge Date/Time: 07/04/19 15:26 Instructions: DI for Dizziness-Nonvertigo Activity Restrictions/Additional Instructions: *You have been diagnosed with [dizziness, non vertigo. Labs and vitals are very reassuring] *What to do: *Take medications as directed: Stop taking your Metoprolol and follow closely with your doctors *Follow up with your primary care provider in 2-3 days, call for an appointment. Let them know you were seen in the Emergency Department and that we ask that you be seen in follow up *Return to ER if you should have any new, worsening or concerning symptoms Prescriptions: No Action acetaminophen 325 mg Tablet 650 mg PO Q4H PRN (Reason: Pain, Mild) RF: 0 atorvastatin 20 mg tablet 20 mg PO QPM RF: 0 lisinopril 5 mg tablet 5 mg PO QAM RF: 0 furosemide 20 mg tablet 60 mg PO QAM RF: 0 Xarelto 20 mg tablet 20 mg PO QPM RF: 0 metformin 500 mg Tablet Extended Release 24hr 500 mg PO BID RF: 0 amiodarone 200 mg tablet 200 mg PO QAM RF: 0 metoprolol succinate 50 mg tablet extended release 24 hr 25 mg PO BID RF: 0 Referrals: Reynaldo Sumner MD [Primary Care Provider] -
[2019-07-04 14:45] VITALS: BP 130/72; PULSE 48; RESP 14; O2SAT 99
== END 2019-07-04 15:26 | disposition home or self-care (01) ==
PROVIDERS: Emergency Provider Emergency Medicine; PCP Family Medicine
DX: R42 Dizziness and giddiness (principal); I10 Essential (primary) hypertension; I48.91 Unspecified atrial fibrillation
CPT/HCPCS: 36415; 70450; 71045; 80053; 82550; 83690; 84484; 85025; 93005; 93010; 96360; 99284

== ENCOUNTER → 2020-02-20 14:02 | Outpatient (CLI) | payer OTHER, MEDICAID, SELFPAY ==
[2019-05-07 05:46] VITALS: BMI 42.7
--- NOTE | 2020-02-20 14:06 | DI.ECHO.S_ITS ---
[place] [facility]---------+ [facility] +---------+ : : [address] : [address] : : : : [phone] : : : : Phone: [phone]---------+ Echocardiogram Report + + :Name: BARRERA WEEKS Study Date: 02/20/2020 Height: 74 in : :[facility] Weight: 338 lb : : Gender: Male BSA: 2.7 m2 : :: 1965 Age: 54 yrs BP: 180/95 mmHg: :Reason For Study: ATRIAL FIBRILLATION : :Ordering Physician: Tristen COLEMANformed By: Holli Roman : :Referring: CYRUS COLEMAN : + + Interpretation Summary The left ventricle is normal in size. The ejection fraction is estimated to be 55-60%. Left ventricular systolic function has significantly improved compared to the previous exam. The right ventricle is at the upper limits of normal in size. The right ventricular systolic function is normal. There is mild tricuspid regurgitation. The right ventricular systolic pressure is estimated to be at least 42 mmHg based on an estimated right atrial pressure of 3 mm Hg. In the study sinus rhythm has replaced A. fib. Procedure: A two-dimensional transthoracic echocardiogram with color flow and Doppler was performed. The study quality was technically adequate. Comparison is made with the echocardiogram of 06/19/2019. A contrast injection of Definity was performed to improve assessment of LV function. Contrast was injected into an intravenous site in the right arm. The patient was in sinus rhythm with heart rates between 64-78 bpm during the exam. Left Ventricle: The left ventricle is normal in size. There is mild concentric left ventricular hypertrophy. Proximal septal thickening is noted. There is no echo evidence for significant left ventricular outflow tract obstruction. The ejection fraction is estimated to be 55-60%. Left ventricular systolic function has significantly improved compared to the previous exam. There are no focal wall motion abnormalities. MV E/A: 1.5 Med Peak E' Yoandy: 10.1 cm/sec E/E' med: 10.3. Right Ventricle: The right ventricle is at the upper limits of normal in size. The right ventricular systolic function is normal. Atria: The left atrium is mildly dilated. The left atrium has mildly increased in size since the prior echo exam. Right atrial size is normal. There is no Doppler evidence for an interatrial shunt. Mitral Valve: The mitral valve is normal in structure and function. There is trace mitral regurgitation. Aortic Valve: The aortic valve is grossly normal. The aortic valve opens well. There is no aortic valve stenosis. No aortic regurgitation is present. Tricuspid Valve: The tricuspid valve is not well visualized, but is grossly normal. There is mild tricuspid regurgitation. The right ventricular systolic pressure is estimated to be at least 42 mmHg based on an estimated right atrial pressure of 3 mm Hg. Pulmonic Valve: The pulmonic valve leaflets are thin and pliable; valve motion is normal. There is no pulmonic valvular regurgitation. Great Vessels: The aortic root is normal size. The dimensions of the ascending aorta are normal. The IVC is of normal diameter and collapses greater than 50% with a sniff. This suggests a low right atrial pressure of 3 mm Hg. Pericardium/ Pleura There is no pericardial effusion. There is an anterior echo-free space consistent with a fat pad. There is no pleural effusion. MMode/2D Measurements & Calculations LVIDd: 4.9 cm LVOT diam: 2.3 cm LVIDs: 3.5 cm Ao root diam: 3.2 cm FS: 29.7 % asc Aorta Diam: 3.2 cm EPSS: 0.84 cm Ao Arch Diam (Prox Trans): 2.7 cm IVSd: 1.4 cm LVPWd: 0.84 cm LV montemayor. diameter/BSA (cm/m^2): 1.8 LV sys. diameter/BSA (cm/m^2): 1.3 LA A2 area: 25.9 cm2 RA long axis: 5.1 cm LA A4 area: 28.3 cm2 RA area: 19.6 cm2 LA length (vol): 5.9 cm RA vol: 63.8 ml LA vol: 106.0 ml RA : 23.5 ml/m2 LA vol index: 39.0 ml/m2 IVC diam: 1.4 cm RVD1 (basal): 4.2 cm TAPSE: 2.1 cm Doppler Measurements & Calculations Ao V2 max: 124.8 cm/sec LVOT Max Yoandy: 113.9 cm/sec Ao V2 mean: 84.3 cm/sec LV V1 max P.2 mmHg Ao max P.2 mmHg LV V1 VTI: 26.6 cm Ao mean P.2 mmHg DIAMOND(I,D): 4.1 cm2 Ao V2 VTI: 26.9 cm DIAMOND(V,D): 3.8 cm2 sev ratio: 0.99 DIAMOND indexed to BSA (cm^2/m^2): 1.5 MV E max yoandy: 103.4 cm/sec TR max yoandy: 315.2 cm/sec MV A max yoandy: 66.9 cm/sec TR max P.8 mmHg MV E/A: 1.5 PA V2 max: 69.9 cm/sec Med Peak E' Yoandy: 10.1 cm/sec PA V2 mean: 46.1 cm/sec E/E' med: 10.3 PA mean P.99 mmHg Lat Peak E' Yoandy: 11.4 cm/sec PA pr(Accel): 8.8 mmHg E/E' lat: 9.1 E/e' average: 9.7 MV dec time: 0.25 sec SV(LVOT): 111.5 ml Reading Physician:04:38 PM
== END ==
PROVIDERS: PCP Family Medicine; Referring Provider Internal Medicine Cardiovascular Disease; Visit Provider Internal Medicine Cardiovascular Disease
DX: I07.1 Rheumatic tricuspid insufficiency (principal); I48.0 Paroxysmal atrial fibrillation
CPT/HCPCS: 93306; Q9957

== ENCOUNTER → 2021-01-24 08:44 | Outpatient (CLI) | payer OTHER, MEDICAID, SELFPAY ==
[2019-05-07 05:46] VITALS: BMI 42.7
[2021-01-24 10:04] LABS: COVID19 -Nasal RAPID Negative (Negative)
== END ==
PROVIDERS: PCP Family Medicine; Referring Provider Internal Medicine; Visit Provider Internal Medicine
DX: Z20.822 Contact with and (suspected) exposure to COVID-19 (principal)
CPT/HCPCS: 87635; C9803

== ENCOUNTER → 2021-01-24 08:48 | Outpatient (CLI) | payer OTHER, MEDICAID, SELFPAY ==
[2019-05-07 05:46] VITALS: BMI 42.7
--- NOTE | 2021-01-29 10:01 | PM.PFT.1 ---
Pulmonary Function Test Referral & Results Date Patient Seen: 01/24/21 Requesting provider: Viet Barbosa Results: The spirometry demonstrates an FVC of 4.39 L which is 77% of predicted. The FEV1 was measured at 3.51 L which is 81% of predicted. The FEV1/FVC ratio was 80 which is 103% of predicted. Following the administration of bronchodilator there was no notable change Lung volumes show an SVC of 4.18 L which is 76% of predicted. The diffusing capacity was measured at 27.23 which is 72% of predicted. No hemoglobin value was provided, so no correction for potential anemia could be made, if appropriate. The maximum voluntary ventilation was reduced Interpretation: This study demonstrates possible very mild obstructive lung disease based on reduction FEV1 although FEV1/FVC ratio is preserved and there is no evidence of benefit post bronchodilator There is a mild reduction in lung volumes suggesting mild restrictive lung disease may also be present There is also mild reduction diffusing capacity suggesting element of disease at the capillary alveolar level as well as patient is anemic as above Clinical correlation suggested
== END ==
PROVIDERS: PCP Family Medicine; Referring Provider Internal Medicine Cardiovascular Disease; Visit Provider Internal Medicine Cardiovascular Disease
DX: R06.02 Shortness of breath (principal); Z20.822 Contact with and (suspected) exposure to COVID-19
CPT/HCPCS: 87635; 94060; 94726; 94729; C9803

== ENCOUNTER 2021-08-16 22:07 | Emergency (ER) | payer OTHER, MEDICAID, SELFPAY ==
[2019-05-07 05:46] VITALS: BMI 42.7
[2021-08-16 22:22] VITALS: PULSE 72; O2SAT 98
[2021-08-16 22:23] VITALS: BP 154/80; PULSE 97; RESP 19; TEMP 36.8; O2SAT 97; BMI 45.4
--- NOTE | 2021-08-16 22:26 | DI.RAD.S_ITS ---
PROCEDURE: XR CHEST 1V INDICATIONS: chest pain TECHNIQUE: One view of the chest was acquired. COMPARISON: [facility], CR, XR CHEST 1V, 07/04/2019, 13:47. [facility], CR, XR CHEST 1V, 04/21/2019, 11:16. FINDINGS: Surgical changes and devices: None. Lungs and pleura: Lungs are clear. No pleural effusions or pneumothorax. Mediastinum: Mediastinal contours appear normal. Heart size is normal. Bones and chest wall: No suspicious bony lesions. Overlying soft tissues appear unremarkable. IMPRESSION: Reduced inspiratory volume, no pneumonia found. A definite source of chest pain is not seen. Dictated by: Harry uJne M.D. on 08/16/2021 at 22:51 Approved by: Harry June M.D. on 08/16/2021 at 22:51
[2021-08-16 22:30] VITALS: BP 154/80; PULSE 67; RESP 16; O2SAT 98
[2021-08-16 22:50] LABS: Add Manual Diff / Slide Review NO; Basophils Absolute Auto 100 /uL (0-100); Basophils Percent Auto 0.6 % (0-2); Eosinophils Absolute Auto 100 /uL (0-450); Eosinophils Percent Auto 1.5 % (2-4); Hemoglobin 14.5 g/dL (13.5-17.5); Lymphocytes Absolute Auto 1900 /uL (1100-4500); Lymphocytes Percent Auto 20.5 % (25-40); Mean Corpuscular Hemoglobin 29.6 PG (26-34); Mean Corpuscular Volume 89.8 fL (80-100); Monocytes Absolute Auto 1000 /uL (0-900); Monocytes Percent Auto 10.3 % (3-14); Neutrophils Absolute Auto 6300 /uL (1500-7000); Neutrophils Percent Auto 67.1 % (50-75); Platelet Count 173 X10^3/uL (150-400); Red Cell Distribution Width 14.7 % (11.6-14.8); White Blood Cell Count 9.4 X10^3/uL (4.5-11.0)
[2021-08-16 22:54] LABS: Alanine Aminotransferase 29 IU/L (<50); Albumin 4.3 g/dL (3.5-5.0); Albumin Globulin Ratio 1.4 (1.0-2.8); Alkaline Phosphatase 62 U/L (38-126); Aspartate Aminotransferase 26 IU/L (17-59); BUN Creatinine Ratio 16.2 (6-22); Bilirubin Total 0.4 mg/dL (0.2-1.3); Blood Urea Nitrogen 19 mg/dL (9-20); Calcium 8.9 mg/dL (8.4-10.2); Carbon Dioxide 30 mmol/L (22-32); Chloride 102 mmol/L (98-107); Creatine Kinase 134 U/L (55-170); Estimated Glomerular Filt Rate > 60 mL/min (>60); Glucose 172 mg/dL (70-100); HEMOLYSIS 20 (0-50); Lipase 95 U/L (23-300); Magnesium 1.7 mg/dL (1.6-2.3); Potassium 3.6 mmol/L (3.4-5.1); Sodium 141 mmol/L (137-145); Total Protein 7.3 g/dL (6.3-8.2)
[2021-08-16 23:00] VITALS: PULSE 65; RESP 12; O2SAT 97
[2021-08-16 23:01] VITALS: BP 136/64; PULSE 66; RESP 17; O2SAT 97
[2021-08-16 23:05] LABS: Troponin I < 0.012 ng/mL (0.01-0.034)
[2021-08-16 23:09] LABS: CKMB % Relative Index 3.3 % (1.5-5.0); Creatine Kinase MB 4.41 ng/mL (<2.37)
--- NOTE | 2021-08-16 23:29 | ED_ITS ---
HPI - Chest Pain General Chief Complaint: Chest Pain Stated Complaint: Chest Pain, recurring Time Seen by Provider: 08/16/21 22:39 Source: patient and family Mode of arrival: Ambulatory Limitations: no limitations History of Present Illness HPI narrative: 56-year-old male who is here for evaluation of chest discomfort. He does have a history of atrial fibrillation. Has had multiple ablations in the past. Within the past 60 days he has had a stress test but he does not know the results of it. Earlier this evening he started to have chest discomfort. He thought maybe his heart was beating fast the onset of it but it is certainly not beating fast him now. At 1 point he did think that it was radiating to his left shoulder but again that has now improved. Has not tried anything for symptoms prior to arr ival. He also states he has a history of heart failure. Is on Lasix. Is a [id number] diabetic. His on anticoagulation because of his atrial fibrillation. Related Data Home Medications Medication Instructions Recorded Confirmed acetaminophen 325 mg tablet 650 mg PO Q4H PRN Pain, Mild 04/21/19 07/04/19 atorvastatin 20 mg tablet 20 mg PO QPM 04/21/19 07/04/19 furosemide 20 mg tablet 60 mg PO QAM 04/21/19 07/04/19 lisinopril 5 mg tablet 5 mg PO QAM 04/21/19 07/04/19 rivaroxaban 20 mg tablet (Xarelto) 20 mg PO QPM 04/21/19 07/04/19 metformin 500 mg tablet,extended 500 mg PO BID 05/07/19 07/04/19 release 24hr amiodarone 200 mg tablet 200 mg PO QAM 07/04/19 07/04/19 metoprolol succinate 50 mg 25 mg PO BID 07/04/19 07/04/19 tablet,extended release 24 hr Allergies Allergy/AdvReac Type Severity Reaction Status Date / Time No Known Drug Allergies Allergy Verified 07/04/19 13:38 Review of Systems Constitutional Constitutional: Denies fever(s) Cardiovascular Cardiovascular: Reports chest pain and Denies dyspnea Respiratory Respiratory: Denies cough and Denies dyspnea Gastrointestinal Gastrointestinal: Denies abdominal pain Musculoskeletal Musculoskeletal: Reports system reviewed and no additional complaints, except as documented Integumentary/Breasts Skin/Breast: Reports system reviewed and no additional complaints, except as documented Neurologic Neurologic: Reports system reviewed and no additional complaints, except as documented Hematologic/Lymphatic On Anticoagulants: Yes Patient History Medical History Diabetes HFrEF (heart failure with reduced ejection fraction) Hypertension MESFIN (obstructive sleep apnea) Persistent atrial fibrillation Surgical History H/O uvulectomy Family History Father Alzheimer's dementia Heart disease Mother Cancer Atrial fibrillation Brother Blind Brother Epilepsy Development delay Social History household members: significant other Smoking Status: Never smoker alcohol intake: never Smoking Status: Never smoker alcohol intake frequency: holidays/special occasions only Substance Use Type: does not use Exam Initial Vital Signs Initial Vital Signs: Vital Signs Pulse Rate 72 08/16/21 22:22 Pulse Oximetry 98 08/16/21 22:22 Const General: cooperative, healthy appearing and comfortable HENMT Head: normal to inspection and normocephalic Resp Effort & Inspection: normal respiratory effort Auscultation: clear to auscultation bilaterally Cardio Rate: regular rate Rhythm: regular rhythm GI Inspection: normal to inspection Skin General: no rashes or lesions noted Neuro General: patient alert, patient awake and moves all extremities Cognition: normal cognition Speech: speech normal Extrem General: normal to inspection and capillary refill normal Psych Appearance: grossly normal and well kempt Scores HEART Score Heart Score history: Slightly Suspicious Heart Score EKG: Non-Specific repolarization disturbance Heart Score Age: 45-64 years old Heart Score risk factors: 1-2 risk factors Heart Score troponin: < or = to normal limit Heart Score Total: 3 Course Orders Ordered: ED Orders 08/16/21 22:26 XR chest 1V Stat EKG-12 Lead Stat 08/16/21 22:30 Complete Blood Count AUTO DIFF Stat Comprehensive Metabolic Panel Stat Lipase Stat Magnesium Stat Troponin & CK Cardiac Panel Stat 08/17/21 01:18 Troponin & CK Cardiac Panel Stat Vital Signs Vital signs: Vital Signs - 8 hr 08/16/21 22:23 08/16/21 22:22 08/16/21 22:30 Temperature 98.3 F Pulse Rate 97 H 72 67 Respiratory Rate 19 16 Blood Pressure 154/80 H 154/80 H Pulse Oximetry 97 98 98 Oxygen Delivery Method Room Air 08/16/21 23:00 08/16/21 23:01 08/16/21 23:01 Temperature Pulse Rate 65 66 Respiratory Rate 12 17 Blood Pressure 136/64 Pulse Oximetry 97 97 Oxygen Delivery Method 08/16/21 23:30 08/16/21 23:30 08/17/21 00:00 Temperature Pulse Rate 66 63 Respiratory Rate 11 L 8 L Blood Pressure 151/69 H Pulse Oximetry 97 96 Oxygen Delivery Method Room Air 08/17/21 00:01 08/17/21 00:01 08/17/21 00:30 Temperature Pulse Rate 64 Respiratory Rate 10 L Blood Pressure 141/67 H 153/74 H Pulse Oximetry 96 Oxygen Delivery Method Room Air 08/17/21 00:30 08/17/21 01:00 08/17/21 01:01 Temperature Pulse Rate 64 65 64 Respiratory Rate 13 9 L 11 L Blood Pressure Pulse Oximetry 95 95 96 Oxygen Delivery Method 08/17/21 01:01 08/17/21 01:30 08/17/21 01:31 Temperature Pulse Rate 63 63 Respiratory Rate 12 13 Blood Pressure 165/74 H Pulse Oximetry 95 95 Oxygen Delivery Method 08/17/21 01:31 08/17/21 02:00 08/17/21 02:01 Temperature Pulse Rate 63 63 Respiratory Rate 17 17 Blood Pressure 126/59 L Pulse Oximetry 96 96 Oxygen Delivery Method Room Air 08/17/21 02:01 08/17/21 02:30 Temperature Pulse Rate 65 Respiratory Rate 21 Blood Pressure 134/69 Pulse Oximetry 97 Oxygen Delivery Method Room Air MDM - Chest Pain Lab Data Attestation: I reviewed the patient's lab results. Result diagrams: 08/16/21 22:30 08/16/21 22:30 Labs: Lab Results 08/16/21 08/16/21 08/17/21 Range/Units 22:30 22:30 01:18 WBC 9.4 (4.5-11.0) X10^3/uL RBC 4.90 (4.5-5.9) X10^6/uL Hgb 14.5 (13.5-17.5) g/dL Hct 44.0 (41-53) % MCV 89.8 (80-100) fL MCH 29.6 (26-34) PG MCHC 33.0 (30-36) % RDW 14.7 (11.6-14.8) % Plt Count 173 (150-400) X10^3/uL Neut % (Auto) 67.1 (50-75) % Lymph % (Auto) 20.5 L (25-40) % Routt % (Auto) 10.3 (3-14) % Eos % (Auto) 1.5 L (2-4) % Baso % (Auto) 0.6 (0-2) % Neut # (Auto) 6300 (4075-9704) /uL Lymph # (Auto) 1900 (1865-4948) /uL [place]t # (Auto) 1000 H (0-900) /uL Eos # (Auto) 100 (0-450) /uL Baso # (Auto) 100 (0-100) /uL Sodium 141 (137-145) mmol/L Potassium 3.6 (3.4-5.1) mmol/L Chloride 102 (98-107) mmol/L Carbon Dioxide 30 (22-32) mmol/L BUN 19 (9-20) mg/dL Creatinine 1.17 (0.66-1.25) mg/dL Estimated GFR > 60 (>60) mL/min BUN/Creatinine Ratio 16.2 (6-22) Glucose 172 H (70-100) mg/dL Calcium 8.9 (8.4-10.2) mg/dL Magnesium 1.7 (1.6-2.3) mg/dL Total Bilirubin 0.4 (0.2-1.3) mg/dL AST 26 (17-59) IU/L ALT 29 (<50) IU/L Alkaline Phosphatase 62 (38-126) U/L Total Creatine Kinase 134 128 (55-170) U/L CK-MB (CK-2) 4.41 H 3.89 H (<2.37) ng/mL CK-MB (CK-2) Rel Index 3.3 3.0 (1.5-5.0) % Troponin I < 0.012 < 0.012 (0.01-0.034) ng/mL Total Protein 7.3 (6.3-8.2) g/dL Albumin 4.3 (3.5-5.0) g/dL Globulin 3.0 (1.7-4.1) g/dL Albumin/Globulin Ratio 1.4 (1.0-2.8) Lipase 95 (23-300) U/L Imaging Data Chest x-ray: Radiologist's Impression: [address] [address] XRay Report Signed Patient: Raudel Martinez MR#: [id number] : 1965 Acct:[id number] Age/Sex: 56 / M Date of Service: 08/16/21 Loc: ED Accession Number: [id number] ?? Procedure: XR chest 1V Ordering Provider: Rizwan Chance D.O. PROCEDURE:? XR CHEST 1V ? INDICATIONS:? chest pain ? TECHNIQUE:? One view of the chest was acquired.? ? COMPARISON:? [facility], CR, XR CHEST 1V, 07/04/2019, 13:47.? [facility], CR, XR CHEST 1V, 04/21/2019, 11:16. ? FINDINGS:? ? Surgical changes and devices:? None.? ? Lungs and pleura:? Lungs are clear.? No pleural effusions or pneumothorax.? ? Mediastinum:? Mediastinal contours appear normal.? Heart size is normal.? ? Bones and chest wall:? No suspicious bony lesions.? Overlying soft tissues appear unremarkable.? ? IMPRESSION:? Reduced inspiratory volume, no pneumonia found.? A definite source of chest pain is not seen. ? ? Dictated by: Harry June M.D. on 08/16/2021 at 22:51 ? ? Approved by: Harry June M.D. on 08/16/2021 at 22:51 ECG Data Attestation: I personally reviewed and interpreted this ECG as follows: Interpretation: Sinus rhythm Ventricular rate of 73 Normal axis Normal QRS Normal QTC Nonspecific ST T wave changes MDM Narrative Medical decision making narrative: Patient has nonspecific changes on his EKG. He is had no discomfort since arrival here in the ER. Is a low risk heart score. Troponins negative x2. I was able to review the results of his stress test. He did have a Lexiscan myocardial perfusion report performed on 07/24/2021. It is a low risk normal pharmacologic nuclear stress test without perfusion evidence of ischemia or infarction, no ST changes with Lexiscan and no angina during the study. I had a discussion with the patient regarding his risk factors. 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 He was given strict return precautions. He expressed understanding and agreement. Discharge Plan Departure Patient Disposition: Home Clinical Impression: Atypical chest pain Instructions: DI for Atypical Chest Pain Activity Restrictions/Additional Instructions: Recommend that you continue to take all of your medications as directed and keep all of your scheduled medical appointments. On Wednesday contact your farm loan representative for a follow-up. Return to the emergency department for any new or worsening symptoms. Prescriptions: No Action acetaminophen 325 mg Tablet 650 mg PO Q4H PRN (Reason: Pain, Mild) atorvastatin 20 mg tablet 20 mg PO QPM lisinopril 5 mg tablet 5 mg PO QAM furosemide 20 mg tablet 60 mg PO QAM Xarelto 20 mg tablet 20 mg PO QPM metformin 500 mg Tablet Extended Release 24hr 500 mg PO BID amiodarone 200 mg tablet 200 mg PO QAM metoprolol succinate 50 mg tablet extended release 24 hr 25 mg PO BID Referrals: Reynaldo Sumner MD [Primary Care Provider] - Visit Report Forms: Patient Portal/API
[2021-08-16 23:30] VITALS: BP 151/69; PULSE 66; RESP 11; O2SAT 97
[2021-08-17] VITALS (10 sets, daily range): BP systolic 126–165; BP diastolic 59–74; PULSE 63–65; RESP 8–21; O2SAT 95–97
[2021-08-17 01:37] LABS: Creatine Kinase 128 U/L (55-170)
[2021-08-17 01:49] LABS: Troponin I < 0.012 ng/mL (0.01-0.034)
[2021-08-17 01:52] LABS: Creatine Kinase MB 3.89 ng/mL (<2.37)
== END 2021-08-17 02:45 | disposition home or self-care (01) ==
PROVIDERS: Emergency Provider Emergency Medicine; PCP Family Medicine
DX: R07.89 Other chest pain (principal); Z79.01 Long term (current) use of anticoagulants
CPT/HCPCS: 36415; 71045; 80053; 82550; 82553; 83690; 83735; 84484; 85025; 93005; 93010; 99284

== ENCOUNTER 2021-09-20 21:52 | Emergency (ER) | payer OTHER, MEDICAID, SELFPAY ==
[2019-05-07 05:46] VITALS: BMI 42.7
[2021-09-20] VITALS (9 sets, daily range): BP systolic 110–148; BP diastolic 59–80; PULSE 84–141; RESP 11–20; TEMP 36.8; O2SAT 94–99; BMI 44.9
--- NOTE | 2021-09-20 22:02 | DI.RAD.S_ITS ---
PROCEDURE: XR CHEST 1V INDICATIONS: chest pain TECHNIQUE: One view of the chest was acquired. COMPARISON: [facility], CR, XR CHEST 1V, 08/16/2021, 22:32. FINDINGS: Surgical changes and devices: None. Lungs and pleura: Lungs are clear. No pleural effusions or pneumothorax. Mediastinum: Mediastinal contours appear normal. Heart size is normal. Bones and chest wall: No suspicious bony lesions. Overlying soft tissues appear unremarkable. IMPRESSION: No acute cardiopulmonary pathology. Dictated by: Roberto Contreras M.D. on 09/20/2021 at 22:47 Approved by: Roberto Contreras M.D. on 09/20/2021 at 22:47
[2021-09-20 22:12] LABS: Add Manual Diff / Slide Review NO; Basophils Absolute Auto 100 /uL (0-100); Basophils Percent Auto 0.7 % (0-2); Eosinophils Absolute Auto 200 /uL (0-450); Eosinophils Percent Auto 1.5 % (2-4); Hematocrit 44.9 % (41-53); Lymphocytes Absolute Auto 1900 /uL (1100-4500); Lymphocytes Percent Auto 18.6 % (25-40); Mean Corpuscular HGB Conc 33.4 % (30-36); Mean Corpuscular Hemoglobin 29.5 PG (26-34); Mean Corpuscular Volume 88.3 fL (80-100); Monocytes Absolute Auto 1100 /uL (0-900); Monocytes Percent Auto 10.5 % (3-14); Neutrophils Absolute Auto 6900 /uL (1500-7000); Neutrophils Percent Auto 68.7 % (50-75); Platelet Count 181 X10^3/uL (150-400); Red Blood Cell Count 5.09 X10^6/uL (4.5-5.9); Red Cell Distribution Width 15.1 % (11.6-14.8); White Blood Cell Count 10.1 X10^3/uL (4.5-11.0)
[2021-09-20 22:18] LABS: INR 1.2 (0.9-1.3)
[2021-09-20 22:34] LABS: COVID19 -Nasal RAPID Negative (Negative)
[2021-09-20 22:35] LABS: Alanine Aminotransferase 41 IU/L (<50); Albumin 4.1 g/dL (3.5-5.0); Albumin Globulin Ratio 1.3 (1.0-2.8); Alkaline Phosphatase 67 U/L (38-126); Aspartate Aminotransferase 29 IU/L (17-59); BUN Creatinine Ratio 12.8 (6-22); Bilirubin Total 0.4 mg/dL (0.2-1.3); Blood Urea Nitrogen 15 mg/dL (9-20); Calcium 8.2 mg/dL (8.4-10.2); Carbon Dioxide 30 mmol/L (22-32); Chloride 103 mmol/L (98-107); Creatine Kinase 139 U/L (55-170); Estimated Glomerular Filt Rate > 60 mL/min (>60); Globulin 3.1 g/dL (1.7-4.1); Glucose 168 mg/dL (70-100); HEMOLYSIS < 15 (0-50); Lipase 76 U/L (23-300); Magnesium 1.4 mg/dL (1.6-2.3); Potassium 3.4 mmol/L (3.4-5.1); Sodium 142 mmol/L (137-145); Total Protein 7.2 g/dL (6.3-8.2)
[2021-09-20 22:46] LABS: Troponin I < 0.012 ng/mL (0.01-0.034)
[2021-09-20 22:50] LABS: CKMB % Relative Index 2.2 % (1.5-5.0); Creatine Kinase MB 3.05 ng/mL (<2.37)
--- NOTE | 2021-09-20 23:54 | ED_ITS ---
HPI - Arrhythmia/Palpitations General Chief Complaint: Arrhythmia/Palpitations Stated Complaint: Afib Time Seen by Provider: 09/20/21 21:55 Source: patient and EMS Mode of arrival: Ambulatory History of Present Illness HPI narrative: 56-year-old gentleman with history of paroxysmal atrial fibrillation with multiple prior ablations currently anticoagulated on Xarelto., hypertension, hyperlipidemia, diabetes and a history of congestive heart failure. Has a long history of atrial fibrillation, multiple ablations most recently March of this year. Continues on metoprolol 50 mg b.i.d.. Had been on amiodarone that had seemingly been working however in the spring of this year he was noted to have developing pulmonary fibrosis and the amiodarone was discontinued. He is been told by his hospitality intern the next step should he have recurrent atrial fibrillation was either admission for titration of flecainide or consideration of pacemaker. Patient notes that at 5:00 a.m. this afternoon with no provocative maneuvers he noticed rapid heart rate without significant chest pain. He notes some mild dyspnea and a sensation of discomfort with the rapid heart rate. He is brought in by medics for further evaluation. Related Data Home Medications Medication Instructions Recorded Confirmed acetaminophen 325 mg tablet 650 mg PO Q4H PRN Pain, Mild 04/21/19 07/04/19 atorvastatin 20 mg tablet 20 mg PO QPM 04/21/19 07/04/19 furosemide 20 mg tablet 60 mg PO QAM 04/21/19 07/04/19 rivaroxaban 20 mg tablet (Xarelto) 20 mg PO QPM 04/21/19 07/04/19 metformin 500 mg tablet,extended 750 mg PO BID 05/07/19 07/04/19 release 24hr metoprolol succinate 50 mg 25 mg PO BID 07/04/19 07/04/19 tablet,extended release 24 hr allopurinol 100 mg tablet 100 mg 09/21/21 bupropion HCl 150 mg 24 hr tablet, 150 mg PO 09/21/21 extended release dapagliflozin 5 mg tablet (Farxiga) 5 mg 09/21/21 gabapentin 300 mg capsule 300 mg 09/21/21 hydralazine 25 mg tablet 25 mg 09/21/21 hydrocortisone 2.5 % topical cream applic topical 09/21/21 ketoconazole 2 % topical cream applic topical 09/21/21 losartan 50 mg tablet 50 mg 09/21/21 triamcinolone acetonide 0.1 % topical 09/21/21 topical ointment Previous Rx's Medication Instructions Recorded losartan 25 mg tablet 25 mg PO DAILY #30 tabs 09/21/21 metoprolol succinate 50 mg 50 mg PO BID #60 tabs 09/21/21 tablet,extended release 24 hr Allergies Allergy/AdvReac Type Severity Reaction Status Date / Time No Known Drug Allergies Allergy Verified 07/04/19 13:38 Review of Systems Review of Systems Narrative: Pertinent positive and negative findings as per HPI Remainder of review of systems is otherwise unremarkable for Constitutional: Fevers, chills, weakness ENT: No sore throat, neck pain, ear pain Respiratory: Cough, wheeze, GI: Nausea, vomiting, diarrhea, : Dysuria, hematuria, Patient History Medical History (Updated 09/21/21 @ 00:31 by Livia Reyes MD) Diabetes HFrEF (heart failure with reduced ejection fraction) Hypertension MESFIN (obstructive sleep apnea) Persistent atrial fibrillation Surgical History H/O uvulectomy Family History Father Alzheimer's dementia Heart disease Mother Cancer Atrial fibrillation Brother Blind Brother Epilepsy Development delay Social History household members: significant other Smoking Status: Never smoker alcohol intake: never Smoking Status: Never smoker alcohol intake frequency: holidays/special occasions only Substance Use Type: does not use Exam Initial Vital Signs Initial Vital Signs: Vital Signs Pulse Rate 84 09/20/21 21:54 Pulse Oximetry 98 09/20/21 21:54 General: Morbidly obese but in no acute distress. Able to give a complete and coherent history. Well-nourished well-developed HEENT: Moist mucous membranes, normal sclera with reactive pupils, Neck: No JVD, supple Respiratory: Lungs are clear to auscultation, no wheezing no rales no rhonchi. Full and symmetrical air movement Cardiac: Rapid and irregular without Abdomen: Soft, nontender, good bowel tones, no flank pain Skin: Warm and dry, no rashes Neurologic: Grossly neurologically intact with no obvious asymmetries or abnormalities Extremities: No trauma, well perfused, no lower extremity Psych: Cooperative, appropriate insight and affect Course Orders Ordered: ED Orders 09/20/21 22:00 Complete Blood Count AUTO DIFF Stat Comprehensive Metabolic Panel Stat Lipase Stat Magnesium Stat Prothrombin Time INR Stat Troponin & CK Cardiac Panel Stat 09/20/21 22:02 XR chest 1V Stat EKG-12 Lead Stat 09/20/21 22:08 COVID19 -Nasal RAPID/Pre-Proc Stat Discontinued Medications Metoprolol Tartrate (Metoprolol Ir 25 Mg Tablet) 50 mg PO NOW ONE Stop: 09/21/21 00:22 Last Admin: 09/21/21 00:33 Dose: 50 mg Documented By: DONNELL Metoprolol Tartrate (Metoprolol Tartrate 5 Mg/5 Ml Inj) 5 mg IV NOW ONE Stop: 09/21/21 00:38 Last Admin: 09/21/21 00:56 Dose: 5 mg Documented By: DONNELL Metoprolol Tartrate (Metoprolol Tartrate 5 Mg/5 Ml Inj) 5 mg IV NOW ONE Stop: 09/21/21 01:29 Last Admin: 09/21/21 01:32 Dose: 5 mg Documented By: DONNELL Metoprolol Tartrate (Metoprolol Ir 25 Mg Tablet) 25 mg PO NOW ONE Stop: 09/21/21 02:07 Last Admin: 09/21/21 02:11 Dose: 25 mg Documented By: DONNELL Vital Signs Vital signs: Vital Signs - 8 hr 09/20/21 21:56 09/20/21 21:54 09/20/21 21:56 Temperature 98.2 F Pulse Rate 99 H 84 113 H Respiratory Rate 20 Blood Pressure 148/80 H Pulse Oximetry 99 98 98 Oxygen Delivery Method Room Air 09/20/21 22:00 09/20/21 22:30 09/20/21 22:44 Temperature Pulse Rate 101 H 141 H Respiratory Rate 12 Blood Pressure 110/75 Pulse Oximetry 98 97 Oxygen Delivery Method 09/20/21 22:44 09/20/21 23:00 09/20/21 23:01 Temperature Pulse Rate 139 H 137 H Respiratory Rate Blood Pressure 136/63 Pulse Oximetry 95 95 Oxygen Delivery Method 09/20/21 23:01 09/20/21 23:30 09/20/21 23:31 Temperature Pulse Rate 136 H 136 H Respiratory Rate 11 L 12 Blood Pressure 112/59 L Pulse Oximetry 95 96 Oxygen Delivery Method 09/20/21 23:31 09/21/21 00:00 09/21/21 00:00 Temperature Pulse Rate 136 H 131 H Respiratory Rate 11 L 17 Blood Pressure 120/77 Pulse Oximetry 94 97 Oxygen Delivery Method 09/21/21 00:30 09/21/21 00:31 09/21/21 00:31 Temperature Pulse Rate 133 H 130 H Respiratory Rate 18 16 Blood Pressure 112/64 Pulse Oximetry 96 96 Oxygen Delivery Method 09/21/21 01:01 09/21/21 01:02 09/21/21 01:02 Temperature Pulse Rate 141 H Respiratory Rate 13 Blood Pressure 134/80 Pulse Oximetry 98 97 Oxygen Delivery Method 09/21/21 01:08 09/21/21 01:08 09/21/21 01:11 Temperature Pulse Rate 116 H Respiratory Rate 12 Blood Pressure 133/79 121/60 Pulse Oximetry 97 Oxygen Delivery Method 09/21/21 01:11 09/21/21 01:15 09/21/21 01:15 Temperature Pulse Rate 114 H 114 H Respiratory Rate 15 12 Blood Pressure 112/56 L Pulse Oximetry 97 96 Oxygen Delivery Method 09/21/21 01:20 09/21/21 01:20 09/21/21 01:30 Temperature Pulse Rate 121 H Respiratory Rate 14 Blood Pressure 107/59 L 110/54 L Pulse Oximetry 96 Oxygen Delivery Method 09/21/21 01:30 09/21/21 01:39 09/21/21 01:39 Temperature Pulse Rate 116 H 113 H Respiratory Rate 14 14 Blood Pressure 109/58 L Pulse Oximetry 98 97 Oxygen Delivery Method 09/21/21 01:41 09/21/21 01:41 09/21/21 01:45 Temperature Pulse Rate 112 H Respiratory Rate 12 Blood Pressure 107/58 L 111/78 Pulse Oximetry 97 Oxygen Delivery Method 09/21/21 01:45 09/21/21 01:51 09/21/21 01:51 Temperature Pulse Rate 111 H Respiratory Rate 11 L 16 Blood Pressure 110/59 L Pulse Oximetry 97 96 Oxygen Delivery Method 09/21/21 01:56 09/21/21 01:56 09/21/21 02:00 Temperature Pulse Rate 114 H Respiratory Rate 12 Blood Pressure 102/59 L 108/63 Pulse Oximetry 96 Oxygen Delivery Method 09/21/21 02:00 09/21/21 02:16 09/21/21 02:16 Temperature Pulse Rate 110 H 112 H Respiratory Rate 13 12 Blood Pressure 119/55 L Pulse Oximetry 96 96 Oxygen Delivery Method 09/21/21 02:30 09/21/21 02:30 09/21/21 02:46 Temperature Pulse Rate 110 H Respiratory Rate 13 Blood Pressure 122/58 L 98/53 L Pulse Oximetry 96 Oxygen Delivery Method 09/21/21 02:46 09/21/21 03:00 09/21/21 03:01 Temperature Pulse Rate 117 H 114 H Respiratory Rate 16 16 Blood Pressure 125/83 Pulse Oximetry 97 95 Oxygen Delivery Method 09/21/21 03:01 Temperature Pulse Rate 114 H Respiratory Rate 16 Blood Pressure Pulse Oximetry 97 Oxygen Delivery Method MDM - Arrhythmia/Palpitations Lab Data Result diagrams: 09/20/21 22:00 09/20/21 22:00 Labs: Lab Results 09/20/21 09/20/21 09/20/21 Range/Units 22:00 22:00 22:00 WBC 10.1 (4.5-11.0) X10^3/uL RBC 5.09 (4.5-5.9) X10^6/uL Hgb 15.0 (13.5-17.5) g/dL Hct 44.9 (41-53) % MCV 88.3 (80-100) fL MCH 29.5 (26-34) PG MCHC 33.4 (30-36) % RDW 15.1 H (11.6-14.8) % Plt Count 181 (150-400) X10^3/uL Neut % (Auto) 68.7 (50-75) % Lymph % (Auto) 18.6 L (25-40) % Brewster % (Auto) 10.5 (3-14) % Eos % (Auto) 1.5 L (2-4) % Baso % (Auto) 0.7 (0-2) % Neut # (Auto) 6900 (1484-2228) /uL Lymph # (Auto) 1900 (2170-7568) /uL Brewster # (Auto) 1100 H (0-900) /uL Eos # (Auto) 200 (0-450) /uL Baso # (Auto) 100 (0-100) /uL PT 14.0 H (10.1-12.7) SECONDS INR 1.2 (0.9-1.3) Sodium 142 (137-145) mmol/L Potassium 3.4 (3.4-5.1) mmol/L Chloride 103 (98-107) mmol/L Carbon Dioxide 30 (22-32) mmol/L BUN 15 (9-20) mg/dL Creatinine 1.17 (0.66-1.25) mg/dL Estimated GFR > 60 (>60) mL/min BUN/Creatinine Ratio 12.8 (6-22) Glucose 168 H (70-100) mg/dL Calcium 8.2 L (8.4-10.2) mg/dL Magnesium 1.4 L (1.6-2.3) mg/dL Total Bilirubin 0.4 (0.2-1.3) mg/dL AST 29 (17-59) IU/L ALT 41 (<50) IU/L Alkaline Phosphatase 67 (38-126) U/L Total Creatine Kinase 139 (55-170) U/L CK-MB (CK-2) 3.05 H (<2.37) ng/mL CK-MB (CK-2) Rel Index 2.2 (1.5-5.0) % Troponin I < 0.012 (0.01-0.034) ng/mL Total Protein 7.2 (6.3-8.2) g/dL Albumin 4.1 (3.5-5.0) g/dL Globulin 3.1 (1.7-4.1) g/dL Albumin/Globulin Ratio 1.3 (1.0-2.8) Lipase 76 (23-300) U/L SARS-CoV-2 (PCR) (Negative) 09/20/21 Range/Units 22:08 WBC (4.5-11.0) X10^3/uL RBC (4.5-5.9) X10^6/uL Hgb (13.5-17.5) g/dL Hct (41-53) % MCV (80-100) fL MCH (26-34) PG MCHC (30-36) % RDW (11.6-14.8) % Plt Count (150-400) X10^3/uL Neut % (Auto) (50-75) % Lymph % (Auto) (25-40) % Brewster % (Auto) (3-14) % Eos % (Auto) (2-4) % Baso % (Auto) (0-2) % Neut # (Auto) (4765-3160) /uL Lymph # (Auto) (7009-9825) /uL Brewster # (Auto) (0-900) /uL Eos # (Auto) (0-450) /uL Baso # (Auto) (0-100) /uL PT (10.1-12.7) SECONDS INR (0.9-1.3) Sodium (137-145) mmol/L Potassium (3.4-5.1) mmol/L Chloride (98-107) mmol/L Carbon Dioxide (22-32) mmol/L BUN (9-20) mg/dL Creatinine (0.66-1.25) mg/dL Estimated GFR (>60) mL/min BUN/Creatinine Ratio (6-22) Glucose (70-100) mg/dL Calcium (8.4-10.2) mg/dL Magnesium (1.6-2.3) mg/dL Total Bilirubin (0.2-1.3) mg/dL AST (17-59) IU/L ALT (<50) IU/L Alkaline Phosphatase (38-126) U/L Total Creatine Kinase (55-170) U/L CK-MB (CK-2) (<2.37) ng/mL CK-MB (CK-2) Rel Index (1.5-5.0) % Troponin I (0.01-0.034) ng/mL Total Protein (6.3-8.2) g/dL Albumin (3.5-5.0) g/dL Globulin (1.7-4.1) g/dL Albumin/Globulin Ratio (1.0-2.8) Lipase (23-300) U/L SARS-CoV-2 (PCR) Negative (Negative) Imaging Data Chest x-ray: Radiologist's Impresson: FINDINGS:? ? Surgical changes and devices:? None.? ? Lungs and pleura:? Lungs are clear.? No pleural effusions or pneumothorax.? ? Mediastinum:? Mediastinal contours appear normal.? Heart size is normal.? ? Bones and chest wall:? No suspicious bony lesions.? Overlying soft tissues appear unremarkable.? ? IMPRESSION:? No acute cardiopulmonary pathology. ? ? Dictated by: Roberto Contreras M.D. on 09/20/2021 at 22:47 ? ? ECG Data Interpretation: Atrial fibrillation at a rate of 133 No acute ischemic changes MDM Narrative Medical decision making narrative: 56-year-old gentleman with recurrent episodes with atrial fibrillation post multiple ablations, he has had cardioversion attempts that were unsuccessful most recently was on amiodarone and developed pulmonary complications so that has been discontinued. He has been in sinus rhythm since most recent ablation in March until 5:00 p.m. this evening. Rate has been modestly elevated in the 130s and he has a sensation of palpation but no overt pain and he is not otherwise stable. Given his complex cardiac/atrial fibrillation history care is reviewed with on-call Cardiology, . Her recommendation was rate control, continued anticoagulation follow-up with Dr. Barbosa early next week. All of this is reviewed with Raudel. He is given a total of 10 mg of IV metoprolol and 75 mg of immediate release metoprolol and his heart rate at time of discharge was in the 90-110 range. The sense of palpitations with significantly resolved. Will have him increase his metoprolol for rate control and decrease his losartan to avoid hypotension. Dr. Barbosa is message and patient will contact him on Wednesday. Reviewed reasons to return to the emergency department. This point he is safe for home discharge Discharge Plan Departure Patient Disposition: Home Clinical Impression: Rapid atrial fibrillation Instructions: DI for Atrial Fibrillation Activity Restrictions/Additional Instructions: Thank you for coming in today Dealing with atrial fibrillation can be very frustrating. At this point, we are going to shift the goal to controlling your heart rate until you have a chance to talk with Dr. Barbosa Heart rate goal is less than 100 and more than 60. Blood pressure goal is 100-140/60-80 I am going to have you increase metoprolol succinate to 50 mg twice a day. If your heart rate is less than 60 do not take the evening dose. Please do take your 50 mg dose at your usual morning time today. I know that they have been changing the losartan dose to try to get your blood pressure better controlled. With the increase in metoprolol I am concerned that we may make your blood pressure too low. Because of that I am going to have you go to losartan 25 mg daily. I have sent a message to Dr. Barbosa and I would expect his office to contact you on Wednesday or Wednesday. If you do not hear from him please make sure you call them. If you are actually having pain, increasing shortness of breath or lower extremity edema or note that your heart rate is consistently above 100, would be appropriate to return to the ER Prescriptions: New metoprolol succinate 50 mg tablet extended release 24 hr 50 mg PO BID Qty: 60 0RF losartan 25 mg tablet 25 mg PO DAILY Qty: 30 0RF No Action acetaminophen 325 mg Tablet 650 mg PO Q4H PRN (Reason: Pain, Mild) atorvastatin 20 mg tablet 20 mg PO QPM furosemide 20 mg tablet 60 mg PO QAM Xarelto 20 mg tablet 20 mg PO QPM metformin 500 mg Tablet Extended Release 24hr 750 mg PO BID metoprolol succinate 50 mg tablet extended release 24 hr 25 mg PO BID allopurinol 100 mg tablet 100 mg Label Comments: TAKE 1 TABLET BY MOUTH ONCE DAILY bupropion HCl 150 mg tablet extended release 24 hr 150 mg PO Label Comments: TAKE 1 TABLET BY MOUTH ONCE DAILY IN THE MORNING, REPLACES DULOXETINE. hydralazine 25 mg tablet 25 mg Label Comments: TAKE 1 TABLET BY MOUTH THREE TIMES DAILY gabapentin 300 mg capsule 300 mg Label Comments: TAKE 1 CAPSULE BY MOUTH ONCE DAILY losartan 50 mg tablet 50 mg Label Comments: TAKE 1 TABLET BY MOUTH ONCE DAILY FOR 14 DAYS, THEN TAKE 2 TABLETS DAILY IF SYSTOLIC BP IS ABOVE 140 MMHG CONSISTENTLY Farxiga 5 mg tablet 5 mg Label Comments: TAKE 1 TABLET BY MOUTH ONCE DAILY IN THE MORNING triamcinolone acetonide 0.1 % ointment TOPICAL Label Comments: APPLY A SMALL AMOUNT OF OINTMENT TOPICALLY TO THE AFFECTED AREA OF RIGHT BLEVINS EVERY NIGHT. USE SPARINGLY FOR 2 WEEKS, THEN STOP hydrocortisone 2.5 % cream TOPICAL Label Comments: APPLY CREAM TO AFFECTED AREA TWICE DAILY NEEDED FOR IRRITATION OR RASH. ketoconazole 2 % cream TOPICAL Label Comments: APPLY CREAM TOPICALLY TWICE DAILY Referrals: Reynaldo Sumner MD [Primary Care Provider] -
[2021-09-21] VITALS (21 sets, daily range): BP systolic 98–134; BP diastolic 53–83; PULSE 110–141; RESP 11–18; O2SAT 95–98
[2021-09-21] MEDS: METOPROLOL IR 25 MG TABLET 50 MG PO (00:33)
[2021-09-21] MEDS: METOPROLOL TARTRATE 5 MG/5 ML INJ IV ×2 (00:56→01:32)
[2021-09-21] MEDS: METOPROLOL IR 25 MG TABLET PO (02:11)
== END 2021-09-21 03:40 | disposition home or self-care (01) ==
PROVIDERS: Emergency Provider Emergency Medicine; PCP Family Medicine
DX: I48.91 Unspecified atrial fibrillation (principal); Z79.01 Long term (current) use of anticoagulants; Z20.822 Contact with and (suspected) exposure to COVID-19
CPT/HCPCS: 71045; 80053; 82550; 82553; 83690; 83735; 84484; 85025; 85610; 87635; 93005; 93010; 96374; 96376; 99284; C9803

== ENCOUNTER → 2024-05-29 10:47 | Outpatient (CLI) | payer OTHER, SELFPAY ==
[2019-05-07 05:46] VITALS: BMI 42.7
[2024-05-29 12:23] LABS: Blood Urea Nitrogen 19 mg/dL (9-20); Calcium 9.4 mg/dL (8.4-10.2); Carbon Dioxide 24 mmol/L (22-32); Chloride 105 mmol/L (98-107); Estimated Glomerular Filt Rate > 60 mL/min (>60); Glucose 127 mg/dL (70-100); HEMOLYSIS < 15 (0-50); Potassium 4.3 mmol/L (3.4-5.1); Sodium 139 mmol/L (137-145)
== END ==
PROVIDERS: Referring Provider Nurse Practitioner Family; Visit Provider Nurse Practitioner Family
DX: I50.22 Chronic systolic (congestive) heart failure (principal)
CPT/HCPCS: 36415; 80048